=== PATIENT | male | born 1950 | race Caucasian/White ===

== ENCOUNTER 2021-07-07 17:00 | Inpatient (IN) | payer MEDICARE, OTHER ==
[2021-07-07] MEDS ORDERED: SODIUM CHLORIDE 0.9% 1,000 ML IV STA ×4 (17:34→19:13)
[2021-07-07] MEDS ORDERED: VANCOMYCIN IV PER PHARMACY 1 EACH MISC MISCELLANE PRN (17:38)
[2021-07-07] MEDS ORDERED: VANCOMYCIN 1,250 MG in SODIUM CHLORIDE 0.9% 250 ML IVPB STA (17:44)
[2021-07-07 17:56] LABS: Glucose,Whole Blood 109 mg/dL (75-99)
[2021-07-07] MEDS ORDERED: ROCURONIUM 10 MG/ML (5 ML VIAL) IV ONE (17:58)
[2021-07-07] MEDS ORDERED: ETOMIDATE 2 MG/ML 10 ML VIAL IVP STA (17:58)
[2021-07-07] MEDS ORDERED: VANCOMYCIN 1,250 MG in SODIUM CHLORIDE 0.9% 250 ML IVPB SCH (18:00)
[2021-07-07] MEDS ORDERED: CEFEPIME 2 GM in SODIUM CHLORIDE 0.9% 100 ML IVPB SCH (18:00)
[2021-07-07] MEDS ORDERED: CEFEPIME 2 GM in SODIUM CHLORIDE 0.9% 100 ML IVPB ONE (18:00)
[2021-07-07 18:21] LABS: Albumin 3.2 g/dL (3.5-5.0); Calcium 9.4 mg/dL (8.4-10.2); Magnesium 2.7 mg/dL (1.6-2.3); Total Bilirubin 1.1 mg/dL (0.2-1.3); Total Protein 5.8 g/dL (6.3-8.2)
[2021-07-07 18:24] LABS: HGB 18.4 gm/dL (13.0-17.5); MCH 30.8 pg (25.0-35.0); MCHC 32.9 g/dL (31.0-37.0); MCV 93.6 fL (80.0-100.0); Mean Platelet Volume 9.8; Platelet Count 237 k/uL (150-450); RBC 5.99 m/uL (4.30-5.90); RDW 13.2 % (11.5-15.5); WBC 16.5 k/uL (3.8-10.6)
[2021-07-07 18:26] LABS: HCT 56.1 % (39.0-53.0)
[2021-07-07 18:35] LABS: ABG Base Excess -2.7 mmol/L; ABG HCO3 23 mmol/L (21-25); ABG Oxygen Saturation 92.9 % (94-97); ABG PCO2 39 mmHg (35-45); ABG PH 7.37 (7.35-7.45); ABG PO2 67 mmHg (83-108); ABG TCO2 24 mmol/L (19-24); Allen Test Performed? Yes
[2021-07-07 18:37] LABS: Amorphous Sediment,Urine Rare /hpf; Appearance,Urine Cloudy (Clear); Bacteria,Urine Rare /hpf; Bilirubin,Urine Negative (Negative); Blood,Urine Negative (Negative); Color,Urine Yellow; Glucose,Urine (UA) Negative (Negative); Hyaline Casts,Urine 79 /lpf (0-2); Ketones,Urine Negative (Negative); Leukocyte Esterase,Urine Negative (Negative); Mucus,Urine Many /hpf; Nitrite,Urine Negative (Negative); Protein,Urine 1+ (Negative); RBC,Urine 26 /hpf (0-5); Specific Gravity,Urine 1.027 (1.001-1.035); Squamous Epithelial Cell,Urine 2 /hpf (0-4); WBC,Urine 17 /hpf (0-5)
--- NOTE | 2021-07-07 18:56 | XR ---
EXAMINATION TYPE: XR chest 1V portable DATE OF EXAM: 07/07/2021 CLINICAL HISTORY: cough, post intubation. TECHNIQUE: Portable semiupright view of the chest. COMPARISON: None FINDINGS: Endotracheal tube distal tip 2.0 cm from the gilberto. Enteric tube distal tip and side-port overlie the gastric antrum and gastric body respectively The cardiomediastinal silhouette is within normal limits for size. Pulmonary vasculature is normal. There are no patchy peripheral air space opa cities. No pleural effusion. No pneumothorax seen. No acute displaced osseous fracture. IMPRESSION: 1. Endotracheal tube distal tip 2.0 cm from the gilberto. 2. Enteric tube distal tip and side-port overlie the stomach. 3. Minimal patchy airspace opacities bilaterally versus atelectasis.
[2021-07-07 19:17] LABS: Band Neutrophils % 2 %; Lymphocytes # (M) 0.83 k/uL (1.0-4.8); Monocytes # (M) 0.66 k/uL (0-1.0); Neutrophils % (M) 89 %; Nucleated Red Blood Cells 0 /100 WBC (0-0); Total Cells Counted 100
[2021-07-07] MEDS ORDERED: NALOXONE 0.4 MG/ML 1 ML VIAL IV PRN (19:33)
[2021-07-07] MEDS: fentaNYL (PF). 1,000 MCG in SODIUM CHLORIDE 0.9% 80 ML IV SCH (20:12)
[2021-07-07] MEDS ORDERED: DEXTROSE 5% IN WATER 1,000 ML IV ONE (20:34)
--- NOTE | 2021-07-07 20:36 | CT ---
EXAMINATION TYPE: CT brain wo con DATE OF EXAM: 07/07/2021 HISTORY: AMS. CT DLP: 1179.8 mGycm. Automated Exposure Control for Dose Reduction was Utilized. TECHNIQUE: CT scan of the head is performed without contrast. COMPARISON: None FINDINGS: There is no acute intracranial hemorrhage, midline shift, or mass effect identified. Generalized volu me loss. Patchy white matter hypodensities likely sequela of chronic microvascular ischemic change. The ventricles, sulci, and cisterns are prominent concordant with generalized volume loss. No abnormal extra-axial fluid collection. Visualized sinuses and mastoid air cells are clear. No dep ressed calvarial fracture. There are nasal bone fractures bilaterally which are likely chronic due to lack of adjacent soft tissue swelling IMPRESSION: No acute intracranial hemorrhage, midline shift, or mass effect.
--- NOTE | 2021-07-07 20:48 | CT ---
EXAMINATION TYPE: CT chest angio for PE DATE OF EXAM: 07/07/2021 COMPARISON: None HISTORY: Altered mental status CT DLP: 360.8 mGycm Automated exposure control for dose reduction was used. CONTRAST: CT Chest for pulmonary embolism performed with with IV Contrast, patient injected with 80 mL of Isovu e 370. FINDINGS: LUNGS: Patient is intubated with endotracheal tube distal tip 1.9 cm from the gilberto. There is abrupt cut off of the left lower lobe bronchus with endobronchial hypodensity within the left lower lobe. T here is also some endobronchial hypodensity within the left upper lobe perihilar region. There is lef t lower lobe atelectasis. There are patchy airspace opacities of the left upper lobe and left lower l obe. Atelectasis of the right lower lobe and scattered mild airspace opacities. No pleural effusion o r pneumothorax. MEDIASTINUM: There is satisfactory enhancement of the pulmonary artery and its branches, there is no CT evidence for pulmonary embolism. There are no greater than 1 cm hilar or mediastinal lymph nodes. Somewhat prominent bihilar lymph nodes. No pericardial effusion is seen. Cardiac size normal. Thor acic aorta normal in caliber. OTHER: Heterogenous nodular thyroid. Enteric tube distal tip in the proximal duodenum. IMPRESSION: 1. No pulmonary embolism. 2. There is abrupt cut off of the left lower lobe bronchus with endobronchial dilatation and hypoden sity which may represent mucus plugging. There is also endobronchial hypodensity of the left upper lo be perihilar region. Left lower lobe atelectasis. Patchy multilobar airspace opacities, predominantly of the left upper and left lower lobes. 3. Endotracheal tube distal tip 1.9 cm from the gilberto. 4. Enteric tube distal tip in the proximal duodenum. 5. Heterogenous nodular thyroid. Recommend nonemergent outpatient dedicated thyroid ultrasound for f urther characterization.
[2021-07-07] MEDS ORDERED: ASPIRIN 300 MG SUPP RECTAL STA (20:52)
[2021-07-07] MEDS ORDERED: ENOXAPARIN 30 MG/0.3 ML SYRINGE SQ SCH (21:00)
[2021-07-07 21:33] LABS: INR 0.9 (<1.2); Prothrombin Time 10.2 sec (9.0-12.0)
[2021-07-07] MEDS: PANTOPRAZOLE 40 MG/10 ML VIAL IVP SCH (22:08)
--- NOTE | 2021-07-07 23:07 | ED ---
General Adult HPI - General Chief complaint: Shortness of Breath Stated complaint: Possible Aspiration Time Seen by Provider: 07/07/21 17:14 Source: EMS Mode of arrival: EMS Limitations: physical limitation - History of Present Illness Initial comments: I evaluated the patient when he was placed in a room. Patient is a 70-year-old male with past medical history remarkable for lewy body dementia with baseline mental status alert but not oriented and mute. Patient also has a history of hypertension. He presents emergency Department from his nursing facility over concern for difficulty in breathing. They noticed this over the last 1-1/2-2 days. They suspect that he may be aspirated. They noticed that he was retaining urine yesterday and today he was having difficulty breathing that was worsening. They brought him to the emergency department for further evaluation. Patient is currently mute and relatively unresponsive, he is in respiratory distress saturating low on nonrebreather in the low 80%'s. He is unable to provide any form of history. Patient is accident for COVID-19 per nursing and EMS. I spoke with the nursing facility over the phone who corroborated the story. I also spoke with the patient's guardian who states he is full code and corroborated the story. - Related Data Home Medications Medication Instructions Recorded Confirmed Atorvastatin [Lipitor] 20 mg PO HS 07/07/21 07/07/21 Losartan [Cozaar] 25 mg PO DAILY 07/07/21 07/07/21 Magnesium Hydroxide [Milk of 2,400 mg PO DAILY PRN 07/07/21 07/07/21 Magnesia] Melatonin 5 mg PO HS 07/07/21 07/07/21 Metoprolol Tartrate [Lopressor] 25 mg PO BID 07/07/21 07/07/21 Tamsulosin HCl [Flomax] 0.4 mg PO DAILY 07/07/21 07/07/21 amLODIPine [Norvasc] 2.5 mg PO DAILY 07/07/21 07/07/21 bisacodyL [Dulcolax] 10 mg RECTAL DAILY PRN 07/07/21 07/07/21 clonazePAM [KlonoPIN] 1 mg PO HS 07/07/21 07/07/21 Allergies Allergy/AdvReac Type Severity Reaction Status Date / Time cortisone Allergy Unknown Verified 07/07/21 17:45 lisinopril Allergy Unknown Verified 07/07/21 17:45 Sulfa (Sulfonamide Allergy Unknown Verified 07/07/21 17:45 Antibiotics) Review of Systems ROS Statement: Those systems with pertinent positive or pertinent negative responses have been documented in the HPI. Unable to provide secondary to mental status. ROS Other: All systems not noted in ROS Statement are negative. Past Medical History Past Medical History: Unable to Obtain History of Any Multi-Drug Resistant Organisms: Unobtainable Past Surgical History: Unable to Obtain Past Psychological History: Unable to Obtain Smoking Status: Unknown if ever smoked Past Alcohol Use History: Unable to Obtain Past Drug Use History: Unable to Obtain General Exam - General Exam Comments Initial Comments: General: In obvious respiratory distress, tachypnea, using accessory muscles for breathing. HEAD: Normal with no signs of head trauma. EYES: PERRLA, EOMI, conjunctiva normal, no discharge. Pupils are 3 mm bilaterally. ENT: Hearing grossly intact, normal oropharynx. RESPIRATORY: Coarse breath sounds bilaterally. Tachypnea. Increased work of breathing. C/V: Tachycardic with regular rhythm. S1 and S2 auscultated. No peripheral edema. Peripheral pulses are 2+ and intact throughout. ABD: Abd is soft, nontender, nondistended EXT: Normal range of motion, no obvious deformity SKIN: Old healing laceration over the forehead. NEURO: Not alert or oriented. GCS is at best 7. Limitations: physical limitation Course Vital Signs 07/07/21 07/07/21 07/07/21 17:03 17:11 17:40 Temperature 97.4 F L Pulse Rate 125 H 120 H Respiratory 34 H 32 H 36 H Rate Blood Pressure 102/60 108/64 O2 Sat by Pulse 84 L 85 L Oximetry 07/07/21 07/07/21 07/07/21 17:50 18:05 18:15 Temperature Pulse Rate 120 H 115 H 114 H Respiratory 30 H 24 24 Rate Blood Pressure 110/67 144/78 153/77 O2 Sat by Pulse 85 L 96 98 Oximetry 07/07/21 07/07/21 07/07/21 19:20 19:40 19:53 Temperature Pulse Rate 112 H 110 H 110 H Respiratory 24 24 24 Rate Blood Pressure 153/78 153/72 139/76 O2 Sat by Pulse 95 96 95 Oximetry 07/07/21 07/07/21 20:23 21:00 Temperature Pulse Rate 105 H 110 H Respiratory 18 18 Rate Blood Pressure 137/83 112/56 O2 Sat by Pulse 97 96 Oximetry Procedures - ABG Interpretation Ph: 7.368 PCO2: 39 PO2: 67 Bicarbonate: 22.6 Interpretation: abnormal, other (hypoxia) Additional Comments: 100% saturations on 5+ PEEP. - Intubation Sedative: Etomidate Paralytic: Rocuronium Laryngoscope: other (Glidescope) Size: 4 ET Tube Size: 7.5 Tube Secured Depth (cm): 25 Tube Secured Location: lips Tube Placement Confirmation: visualized tube passing through cords, equal breath sounds bilaterally, confirmation by capnometry Patient Tolerated Procedure: well Intubation Complications: none Medical Decision Making - Medical Decision Making Based on the patient's presentation and physical exam, I'm concerned for acute hypoxic respiratory failure with impending respiratory arrest secondary to his increased work of breathing and current hypoxia. He otherwise is hemodynamicall y stable except for tachycardia. Cannot rule out cardiac etiology versus infectious versus possible pulmonary embolism. Well's score for PE is high/moderate in we will obtain a CT PE to rule out pulmonary embolus and. Problem laboratory studies will also be obtained including lactic acid, blood c ultures, basic labs, troponin, d-dimer. Chest x-ray will also be obtained. We'll also obtain a head CT. Patient meets sepsis criteria at 1735. He'll be bolus 2 L of fluid. He'll be started on empiric vancomycin and cefepime. Patient requires intubation. Please see the separate note for intubation. He'll be connected to continuous voip network technician and while he is here in the department. There was successful intubation. Patient's chest x-ray shows no acute cardio primary process. Patient is intubated with adequate placement of the ET tube as well as OG tube. Head CT shows no acute intracranial process. Chest CTA was obtained prior to laboratory studies returning, which revealed no PE. There may be mucous plugging. There is also patchy multilobar airspace opacities mostly in the left upper and lower lobes. This is concerning for pneumonia. Laboratory studies were remarkable for a leukocytosis of 16.5. D-dimer is elevated to 2.82. Patient is hypernatremic 151 and hyperchloremic of 119. Patient has an AK I with a creatinine of 1.84 and they went of 63. Lactic acid is mildly elevated to 2.5. Troponin is elevated to 0.084 an EKG shows no signs of acute ischemia, and this is likely secondary to a NSTEMI. Urinalysis is remarkable for possible UTI with 26 RBCs, 17 WBCs. Covid, flu, RSV are negative. On reevaluation, patient's oxygen saturation is improved following intubation. ABG on current vent settings showed hypoxia with pO2 of 67 but adequate ventilation. PH is 7.36. Patient remains hemodynamically stable. Repeat lactate is 0.8. I completed the sepsis perfusion exam. I spoke with the patient's guardian, Vidya and updated her on the patient and explained he will be admitted to the hospital. She was in agreement with this plan. I spoke with the ICU attending, Dr. Vela who accepted the patient to the ICU. I spoke with the admitting team, SUAD Demarco of [facility] who accepted the patient. I suspect with Dr. Flor regarding the elevated troponin and was in agreement with trending the values and holding heparin. He will be given aspirin. Patient was therefore admitted in serious condition to the ICU. - Lab Data Result diagrams: 07/07/21 17:57 07/07/21 17:57 Lab Results 07/07/21 07/07/21 07/07/21 Range/Units 17:54 17:57 17:57 WBC 16.5 H (3.8-10.6) k/uL RBC 5.99 H (4.30-5.90) m/uL Hgb 18.4 H (13.0-17.5) gm/dL Hct 56.1 H (39.0-53.0) % MCV 93.6 (80.0-100.0) fL MCH 30.8 (25.0-35.0) pg MCHC 32.9 (31.0-37.0) g/dL RDW 13.2 (11.5-15.5) % Plt Count 237 (150-450) k/uL MPV 9.8 Neutrophils % Not Reportable Neutrophils % (Manual) 89 % Band Neuts % (Manual) 2 % Lymphocytes % Not Reportable Lymphocytes % (Manual) 5 % Monocytes % Not Reportable Monocytes % (Manual) 4 % Eosinophils % Not Reportable Basophils % Not Reportable Neutrophils # Not Reportable Neutrophils # (Manual) 15.00 H (1.3-7.7) k/uL Lymphocytes # Not Reportable Lymphocytes # (Manual) 0.83 L (1.0-4.8) k/uL Monocytes # Not Reportable Monocytes # (Manual) 0.66 (0-1.0) k/uL Eosinophils # Not Reportable Basophils # Not Reportable Nucleated RBCs 0 (0-0) /100 WBC Manual Slide Review Performed RBC Morphology Normal Sample Site ABG pH (7.35-7.45) ABG pCO2 (35-45) mmHg ABG pO2 (83-108) mmHg ABG HCO3 (21-25) mmol/L ABG Total CO2 (19-24) mmol/L ABG O2 Saturation (94-97) % ABG Base Excess mmol/L Blade Test FiO2 % Sodium (137-145) mmol/L Potassium (3.5-5.1) mmol/L Chloride (98-107) mmol/L Carbon Dioxide (22-30) mmol/L Anion Gap mmol/L BUN (9-20) mg/dL Creatinine (0.66-1.25) mg/dL Est GFR (CKD-EPI)AfAm (>60 ml/min/1.73 sqM) Est GFR (CKD-EPI)NonAf (>60 ml/min/1.73 sqM) Glucose (74-99) mg/dL POC Glucose (mg/dL) 109 H (75-99) mg/dL POC Glu Environmental Scientist ID Maureen Chapman Lactic Ac Sepsis Rflx Plasma Lactic Acid Jasiel (0.7-2.0) mmol/L Calcium (8.4-10.2) mg/dL Magnesium (1.6-2.3) mg/dL Total Bilirubin (0.2-1.3) mg/dL AST (17-59) U/L ALT (4-49) U/L Alkaline Phosphatase (38-126) U/L Troponin I (0.000-0.034) ng/mL NT-Pro-B Natriuret Pep pg/mL Total Protein (6.3-8.2) g/dL Albumin (3.5-5.0) g/dL Urine Color Yellow Urine Appearance Cloudy (Clear) Urine pH 5.0 (5.0-8.0) Ur Specific [place] 1.027 (1.001-1.035) Urine Protein 1+ H (Negative) Urine Glucose (UA) Negative (Negative) Urine Ketones Negative (Negative) Urine Blood Negative (Negative) Urine Nitrite Negative (Negative) Urine Bilirubin Negative (Negative) Urine Urobilinogen 2.0 (<2.0) mg/dL Ur Leukocyte Esterase Negative (Negative) Urine RBC 26 H (0-5) /hpf Urine WBC 17 H (0-5) /hpf Ur Squamous Epith Cells 2 (0-4) /hpf Amorphous Sediment Rare H (None) /hpf Urine Bacteria Rare H (None) /hpf Hyaline Casts 79 H (0-2) /lpf Urine Mucus Many H (None) /hpf Influenza Type A (PCR) (Not Detectd) Influenza Type B (PCR) (Not Detectd) RSV (PCR) (Not Detectd) SARS-CoV-2 (PCR) (Not Detectd) 07/07/21 07/07/21 07/07/21 Range/Units 17:57 17:57 17:57 WBC (3.8-10.6) k/uL RBC (4.30-5.90) m/uL Hgb (13.0-17.5) gm/dL Hct (39.0-53.0) % MCV (80.0-100.0) fL MCH (25.0-35.0) pg MCHC (31.0-37.0) g/dL RDW (11.5-15.5) % Plt Count (150-450) k/uL MPV Neutrophils % Neutrophils % (Manual) % Band Neuts % (Manual) % Lymphocytes % Lymphocytes % (Manual) % Monocytes % Monocytes % (Manual) % Eosinophils % Basophils % Neutrophils # Neutrophils # (Manual) (1.3-7.7) k/uL Lymphocytes # Lymphocytes # (Manual) (1.0-4.8) k/uL Monocytes # Monocytes # (Manual) (0-1.0) k/uL Eosinophils # Basophils # Nucleated RBCs (0-0) /100 WBC Manual Slide Review RBC Morphology Sample Site ABG pH (7.35-7.45) ABG pCO2 (35-45) mmHg ABG pO2 (83-108) mmHg ABG HCO3 (21-25) mmol/L ABG Total CO2 (19-24) mmol/L ABG O2 Saturation (94-97) % ABG Base Excess mmol/L Blade Test FiO2 % Sodium 151 H (137-145) mmol/L Potassium 4.0 (3.5-5.1) mmol/L Chloride 119 H (98-107) mmol/L Carbon Dioxide 24 (22-30) mmol/L Anion Gap 8 mmol/L BUN 63 H (9-20) mg/dL Creatinine 1.84 H (0.66-1.25) mg/dL Est GFR (CKD-EPI)AfAm 43 (>60 ml/min/1.73 sqM) Est GFR (CKD-EPI)NonAf 37 (>60 ml/min/1.73 sqM) Glucose 121 H (74-99) mg/dL POC Glucose (mg/dL) (75-99) mg/dL POC Glu Environmental Scientist ID Lactic Ac Sepsis Rflx Plasma Lactic Acid Jasiel 2.5 H* (0.7-2.0) mmol/L Calcium 9.4 (8.4-10.2) mg/dL Magnesium 2.7 H (1.6-2.3) mg/dL Total Bilirubin 1.1 (0.2-1.3) mg/dL AST 43 (17-59) U/L ALT 39 (4-49) U/L Alkaline Phosphatase 60 (38-126) U/L Troponin I 0.084 H* (0.000-0.034) ng/mL NT-Pro-B Natriuret Pep pg/mL Total Protein 5.8 L (6.3-8.2) g/dL Albumin 3.2 L (3.5-5.0) g/dL Urine Color Urine Appearance (Clear) Urine pH (5.0-8.0) Ur Specific [place] (1.001-1.035) Urine Protein (Negative) Urine Glucose (UA) (Negative) Urine Ketones (Negative) Urine Blood (Negative) Urine Nitrite (Negative) Urine Bilirubin (Negative) Urine Urobilinogen (<2.0) mg/dL Ur Leukocyte Esterase (Negative) Urine RBC (0-5) /hpf Urine WBC (0-5) /hpf Ur Squamous Epith Cells (0-4) /hpf Amorphous Sediment (None) /hpf Urine Bacteria (None) /hpf Hyaline Casts (0-2) /lpf Urine Mucus (None) /hpf Influenza Type A (PCR) (Not Detectd) Influenza Type B (PCR) (Not Detectd) RSV (PCR) (Not Detectd) SARS-CoV-2 (PCR) (Not Detectd) 07/07/21 07/07/21 07/07/21 Range/Units 17:57 17:57 18:26 WBC (3.8-10.6) k/uL RBC (4.30-5.90) m/uL Hgb (13.0-17.5) gm/dL Hct (39.0-53.0) % MCV (80.0-100.0) fL MCH (25.0-35.0) pg MCHC (31.0-37.0) g/dL RDW (11.5-15.5) % Plt Count (150-450) k/uL MPV Neutrophils % Neutrophils % (Manual) % Band Neuts % (Manual) % Lymphocytes % Lymphocytes % (Manual) % Monocytes % Monocytes % (Manual) % Eosinophils % Basophils % Neutrophils # Neutrophils # (Manual) (1.3-7.7) k/uL Lymphocytes # Lymphocytes # (Manual) (1.0-4.8) k/uL Monocytes # Monocytes # (Manual) (0-1.0) k/uL Eosinophils # Basophils # Nucleated RBCs (0-0) /100 WBC Manual Slide Review RBC Morphology Sample Site L RAD ABG pH 7.37 (7.35-7.45) ABG pCO2 39 (35-45) mmHg ABG pO2 67 L (83-108) mmHg ABG HCO3 23 (21-25) mmol/L ABG Total CO2 24 (19-24) mmol/L ABG O2 Saturation 92.9 L (94-97) % ABG Base Excess -2.7 mmol/L Blade Test Yes FiO2 100 % Sodium (137-145) mmol/L Potassium (3.5-5.1) mmol/L Chloride (98-107) mmol/L Carbon Dioxide (22-30) mmol/L Anion Gap mmol/L BUN (9-20) mg/dL Creatinine (0.66-1.25) mg/dL Est GFR (CKD-EPI)AfAm (>60 ml/min/1.73 sqM) Est GFR (CKD-EPI)NonAf (>60 ml/min/1.73 sqM) Glucose (74-99) mg/dL POC Glucose (mg/dL) (75-99) mg/dL POC Glu Environmental Scientist ID Lactic Ac Sepsis Rflx Plasma Lactic Acid Jasiel (0.7-2.0) mmol/L Calcium (8.4-10.2) mg/dL Magnesium (1.6-2.3) mg/dL Total Bilirubin (0.2-1.3) mg/dL AST (17-59) U/L ALT (4-49) U/L Alkaline Phosphatase (38-126) U/L Troponin I (0.000-0.034) ng/mL NT-Pro-B Natriuret Pep 269 pg/mL Total Protein (6.3-8.2) g/dL Albumin (3.5-5.0) g/dL Urine Color Urine Appearance (Clear) Urine pH (5.0-8.0) Ur Specific [place] (1.001-1.035) Urine Protein (Negative) Urine Glucose (UA) (Negative) Urine Ketones (Negative) Urine Blood (Negative) Urine Nitrite (Negative) Urine Bilirubin (Negative) Urine Urobilinogen (<2.0) mg/dL Ur Leukocyte Esterase (Negative) Urine RBC (0-5) /hpf Urine WBC (0-5) /hpf Ur Squamous Epith Cells (0-4) /hpf Amorphous Sediment (None) /hpf Urine Bacteria (None) /hpf Hyaline Casts (0-2) /lpf Urine Mucus (None) /hpf Influenza Type A (PCR) Not Detected (Not Detectd) Influenza Type B (PCR) Not Detected (Not Detectd) RSV (PCR) Not Detected (Not Detectd) SARS-CoV-2 (PCR) Not Detected (Not Detectd) 07/07/21 Range/Units 18:30 WBC (3.8-10.6) k/uL RBC (4.30-5.90) m/uL Hgb (13.0-17.5) gm/dL Hct (39.0-53.0) % MCV (80.0-100.0) fL MCH (25.0-35.0) pg MCHC (31.0-37.0) g/dL RDW (11.5-15.5) % Plt Count (150-450) k/uL MPV Neutrophils % Neutrophils % (Manual) % Band Neuts % (Manual) % Lymphocytes % Lymphocytes % (Manual) % Monocytes % Monocytes % (Manual) % Eosinophils % Basophils % Neutrophils # Neutrophils # (Manual) (1.3-7.7) k/uL Lymphocytes # Lymphocytes # (Manual) (1.0-4.8) k/uL Monocytes # Monocytes # (Manual) (0-1.0) k/uL Eosinophils # Basophils # Nucleated RBCs (0-0) /100 WBC Manual Slide Review RBC Morphology Sample Site ABG pH (7.35-7.45) ABG pCO2 (35-45) mmHg ABG pO2 (83-108) mmHg ABG HCO3 (21-25) mmol/L ABG Total CO2 (19-24) mmol/L ABG O2 Saturation (94-97) % ABG Base Excess mmol/L Blade Test FiO2 % Sodium (137-145) mmol/L Potassium (3.5-5.1) mmol/L Chloride (98-107) mmol/L Carbon Dioxide (22-30) mmol/L Anion Gap mmol/L BUN (9-20) mg/dL Creatinine (0.66-1.25) mg/dL Est GFR (CKD-EPI)AfAm (>60 ml/min/1.73 sqM) Est GFR (CKD-EPI)NonAf (>60 ml/min/1.73 sqM) Glucose (74-99) mg/dL POC Glucose (mg/dL) (75-99) mg/dL POC Glu Environmental Scientist ID Lactic Ac Sepsis Rflx Y Plasma Lactic Acid Jasiel (0.7-2.0) mmol/L Calcium (8.4-10.2) mg/dL Magnesium (1.6-2.3) mg/dL Total Bilirubin (0.2-1.3) mg/dL AST (17-59) U/L ALT (4-49) U/L Alkaline Phosphatase (38-126) U/L Troponin I (0.000-0.034) ng/mL NT-Pro-B Natriuret Pep pg/mL Total Protein (6.3-8.2) g/dL Albumin (3.5-5.0) g/dL Urine Color Urine Appearance (Clear) Urine pH (5.0-8.0) Ur Specific [place] (1.001-1.035) Urine Protein (Negative) Urine Glucose (UA) (Negative) Urine Ketones (Negative) Urine Blood (Negative) Urine Nitrite (Negative) Urine Bilirubin (Negative) Urine Urobilinogen (<2.0) mg/dL Ur Leukocyte Esterase (Negative) Urine RBC (0-5) /hpf Urine WBC (0-5) /hpf Ur Squamous Epith Cells (0-4) /hpf Amorphous Sediment (None) /hpf Urine Bacteria (None) /hpf Hyaline Casts (0-2) /lpf Urine Mucus (None) /hpf Influenza Type A (PCR) (Not Detectd) Influenza Type B (PCR) (Not Detectd) RSV (PCR) (Not Detectd) SARS-CoV-2 (PCR) (Not Detectd) - EKG Data -: EKG Interpreted by Me EKG Comments: 12-lead Electrocardiogram Interpretation Note EKG was reviewed and interpreted by myself. 12-lead ECG performed at 1709 is interpreted by me as revealing sinus tachycardia at a rate of 125 beats per minute. Corrigan is normal. VA interval is 112 ms, QRS duration 76 ms, QTc is 499 ms.. There are mild ST segment depressions in V3, V4, and possibly V5. Minimal. No reciprocal changes.. R wave progression across the precordium was satisfactory. By my interpretation, this EKG is nondiagnostic for acute ischemia.. Critical Care Time Critical Care Time: Yes Total Critical Care Time: 35 Critical Care Time: Upon my evaluation, this patient had a high probability of imminent or life- threatening deterioration due to hypoxic respiratory failure, sepsis, which required my direct attention, intervention, and personal management. I have personally provided 35 minutes of critical care time exclusive of time spent on separately billable procedures. Time includes review of laboratory data, radiology results, discussion with consultants, and monitoring for potential decompensation. Interventions were performed as documented in my note. Disposition Clinical Impression: Sepsis with acute hypoxic respiratory failure, Sinus tachycardia, Airway intubation performed without difficulty, Hypernatremia, NSTEMI (non-ST elevated myocardial infarction), JOEY (acute kidney injury), Elevated d-dimer, UTI (urinary tract infection), Elevated lactic acid level, Lewy body dementia Disposition: ADMITTED IP TO THIS HOSP Condition: Critical Is patient prescribed a controlled substance at d/c from ED?: No
--- NOTE | 2021-07-07 23:22 | ED ---
Medical Decision Making - Lab Data Result diagrams: 07/07/21 17:57 07/07/21 17:57 Lab Results 07/07/21 07/07/21 07/07/21 Range/Units 17:54 17:57 17:57 WBC 16.5 H (3.8-10.6) k/uL RBC 5.99 H (4.30-5.90) m/uL Hgb 18.4 H (13.0-17.5) gm/dL Hct 56.1 H (39.0-53.0) % MCV 93.6 (80.0-100.0) fL MCH 30.8 (25.0-35.0) pg MCHC 32.9 (31.0-37.0) g/dL RDW 13.2 (11.5-15.5) % Plt Count 237 (150-450) k/uL MPV 9.8 Neutrophils % Not Reportable Neutrophils % (Manual) 89 % Band Neuts % (Manual) 2 % Lymphocytes % Not Reportable Lymphocytes % (Manual) 5 % Monocytes % Not Reportable Monocytes % (Manual) 4 % Eosinophils % Not Reportable Basophils % Not Reportable Neutrophils # Not Reportable Neutrophils # (Manual) 15.00 H (1.3-7.7) k/uL Lymphocytes # Not Reportable Lymphocytes # (Manual) 0.83 L (1.0-4.8) k/uL Monocytes # Not Reportable Monocytes # (Manual) 0.66 (0-1.0) k/uL Eosinophils # Not Reportable Basophils # Not Reportable Nucleated RBCs 0 (0-0) /100 WBC Manual Slide Review Performed RBC Morphology Normal Sample Site ABG pH (7.35-7.45) ABG pCO2 (35-45) mmHg ABG pO2 (83-108) mmHg ABG HCO3 (21-25) mmol/L ABG Total CO2 (19-24) mmol/L ABG O2 Saturation (94-97) % ABG Base Excess mmol/L Blade Test FiO2 % Sodium (137-145) mmol/L Potassium (3.5-5.1) mmol/L Chloride (98-107) mmol/L Carbon Dioxide (22-30) mmol/L Anion Gap mmol/L BUN (9-20) mg/dL Creatinine (0.66-1.25) mg/dL Est GFR (CKD-EPI)AfAm (>60 ml/min/1.73 sqM) Est GFR (CKD-EPI)NonAf (>60 ml/min/1.73 sqM) Glucose (74-99) mg/dL POC Glucose (mg/dL) 109 H (75-99) mg/dL POC Glu Sofa Inspector ID Maureen Chapman Ac Sepsis Rflx Plasma Lactic Acid Jasiel (0.7-2.0) mmol/L Calcium (8.4-10.2) mg/dL Magnesium (1.6-2.3) mg/dL Total Bilirubin (0.2-1.3) mg/dL AST (17-59) U/L ALT (4-49) U/L Alkaline Phosphatase (38-126) U/L Troponin I (0.000-0.034) ng/mL NT-Pro-B Natriuret Pep pg/mL Total Protein (6.3-8.2) g/dL Albumin (3.5-5.0) g/dL Urine Color Yellow Urine Appearance Cloudy (Clear) Urine pH 5.0 (5.0-8.0) Ur Specific [place] 1.027 (1.001-1.035) Urine Protein 1+ H (Negative) Urine Glucose (UA) Negative (Negative) Urine Ketones Negative (Negative) Urine Blood Negative (Negative) Urine Nitrite Negative (Negative) Urine Bilirubin Negative (Negative) Urine Urobilinogen 2.0 (<2.0) mg/dL Ur Leukocyte Esterase Negative (Negative) Urine RBC 26 H (0-5) /hpf Urine WBC 17 H (0-5) /hpf Ur Squamous Epith Cells 2 (0-4) /hpf Amorphous Sediment Rare H (None) /hpf Urine Bacteria Rare H (None) /hpf Hyaline Casts 79 H (0-2) /lpf Urine Mucus Many H (None) /hpf Influenza Type A (PCR) (Not Detectd) Influenza Type B (PCR) (Not Detectd) RSV (PCR) (Not Detectd) SARS-CoV-2 (PCR) (Not Detectd) 07/07/21 07/07/21 07/07/21 Range/Units 17:57 17:57 17:57 WBC (3.8-10.6) k/uL RBC (4.30-5.90) m/uL Hgb (13.0-17.5) gm/dL Hct (39.0-53.0) % MCV (80.0-100.0) fL MCH (25.0-35.0) pg MCHC (31.0-37.0) g/dL RDW (11.5-15.5) % Plt Count (150-450) k/uL MPV Neutrophils % Neutrophils % (Manual) % Band Neuts % (Manual) % Lymphocytes % Lymphocytes % (Manual) % Monocytes % Monocytes % (Manual) % Eosinophils % Basophils % Neutrophils # Neutrophils # (Manual) (1.3-7.7) k/uL Lymphocytes # Lymphocytes # (Manual) (1.0-4.8) k/uL Monocytes # Monocytes # (Manual) (0-1.0) k/uL Eosinophils # Basophils # Nucleated RBCs (0-0) /100 WBC Manual Slide Review RBC Morphology Sample Site ABG pH (7.35-7.45) ABG pCO2 (35-45) mmHg ABG pO2 (83-108) mmHg ABG HCO3 (21-25) mmol/L ABG Total CO2 (19-24) mmol/L ABG O2 Saturation (94-97) % ABG Base Excess mmol/L Blade Test FiO2 % Sodium 151 H (137-145) mmol/L Potassium 4.0 (3.5-5.1) mmol/L Chloride 119 H (98-107) mmol/L Carbon Dioxide 24 (22-30) mmol/L Anion Gap 8 mmol/L BUN 63 H (9-20) mg/dL Creatinine 1.84 H (0.66-1.25) mg/dL Est GFR (CKD-EPI)AfAm 43 (>60 ml/min/1.73 sqM) Est GFR (CKD-EPI)NonAf 37 (>60 ml/min/1.73 sqM) Glucose 121 H (74-99) mg/dL POC Glucose (mg/dL) (75-99) mg/dL POC Glu Sofa Inspector ID Lactic Ac Sepsis Rflx Plasma Lactic Acid Jasiel 2.5 H* (0.7-2.0) mmol/L Calcium 9.4 (8.4-10.2) mg/dL Magnesium 2.7 H (1.6-2.3) mg/dL Total Bilirubin 1.1 (0.2-1.3) mg/dL AST 43 (17-59) U/L ALT 39 (4-49) U/L Alkaline Phosphatase 60 (38-126) U/L Troponin I 0.084 H* (0.000-0.034) ng/mL NT-Pro-B Natriuret Pep pg/mL Total Protein 5.8 L (6.3-8.2) g/dL Albumin 3.2 L (3.5-5.0) g/dL Urine Color Urine Appearance (Clear) Urine pH (5.0-8.0) Ur Specific [place] (1.001-1.035) Urine Protein (Negative) Urine Glucose (UA) (Negative) Urine Ketones (Negative) Urine Blood (Negative) Urine Nitrite (Negative) Urine Bilirubin (Negative) Urine Urobilinogen (<2.0) mg/dL Ur Leukocyte Esterase (Negative) Urine RBC (0-5) /hpf Urine WBC (0-5) /hpf Ur Squamous Epith Cells (0-4) /hpf Amorphous Sediment (None) /hpf Urine Bacteria (None) /hpf Hyaline Casts (0-2) /lpf Urine Mucus (None) /hpf Influenza Type A (PCR) (Not Detectd) Influenza Type B (PCR) (Not Detectd) RSV (PCR) (Not Detectd) SARS-CoV-2 (PCR) (Not Detectd) 07/07/21 07/07/21 07/07/21 Range/Units 17:57 17:57 18:26 WBC (3.8-10.6) k/uL RBC (4.30-5.90) m/uL Hgb (13.0-17.5) gm/dL Hct (39.0-53.0) % MCV (80.0-100.0) fL MCH (25.0-35.0) pg MCHC (31.0-37.0) g/dL RDW (11.5-15.5) % Plt Count (150-450) k/uL MPV Neutrophils % Neutrophils % (Manual) % Band Neuts % (Manual) % Lymphocytes % Lymphocytes % (Manual) % Monocytes % Monocytes % (Manual) % Eosinophils % Basophils % Neutrophils # Neutrophils # (Manual) (1.3-7.7) k/uL Lymphocytes # Lymphocytes # (Manual) (1.0-4.8) k/uL Monocytes # Monocytes # (Manual) (0-1.0) k/uL Eosinophils # Basophils # Nucleated RBCs (0-0) /100 WBC Manual Slide Review RBC Morphology Sample Site L RAD ABG pH 7.37 (7.35-7.45) ABG pCO2 39 (35-45) mmHg ABG pO2 67 L (83-108) mmHg ABG HCO3 23 (21-25) mmol/L ABG Total CO2 24 (19-24) mmol/L ABG O2 Saturation 92.9 L (94-97) % ABG Base Excess -2.7 mmol/L Blade Test Yes FiO2 100 % Sodium (137-145) mmol/L Potassium (3.5-5.1) mmol/L Chloride (98-107) mmol/L Carbon Dioxide (22-30) mmol/L Anion Gap mmol/L BUN (9-20) mg/dL Creatinine (0.66-1.25) mg/dL Est GFR (CKD-EPI)AfAm (>60 ml/min/1.73 sqM) Est GFR (CKD-EPI)NonAf (>60 ml/min/1.73 sqM) Glucose (74-99) mg/dL POC Glucose (mg/dL) (75-99) mg/dL POC Glu Sofa Inspector ID Lactic Ac Sepsis Rflx Plasma Lactic Acid Jasiel (0.7-2.0) mmol/L Calcium (8.4-10.2) mg/dL Magnesium (1.6-2.3) mg/dL Total Bilirubin (0.2-1.3) mg/dL AST (17-59) U/L ALT (4-49) U/L Alkaline Phosphatase (38-126) U/L Troponin I (0.000-0.034) ng/mL NT-Pro-B Natriuret Pep 269 pg/mL Total Protein (6.3-8.2) g/dL Albumin (3.5-5.0) g/dL Urine Color Urine Appearance (Clear) Urine pH (5.0-8.0) Ur Specific [place] (1.001-1.035) Urine Protein (Negative) Urine Glucose (UA) (Negative) Urine Ketones (Negative) Urine Blood (Negative) Urine Nitrite (Negative) Urine Bilirubin (Negative) Urine Urobilinogen (<2.0) mg/dL Ur Leukocyte Esterase (Negative) Urine RBC (0-5) /hpf Urine WBC (0-5) /hpf Ur Squamous Epith Cells (0-4) /hpf Amorphous Sediment (None) /hpf Urine Bacteria (None) /hpf Hyaline Casts (0-2) /lpf Urine Mucus (None) /hpf Influenza Type A (PCR) Not Detected (Not Detectd) Influenza Type B (PCR) Not Detected (Not Detectd) RSV (PCR) Not Detected (Not Detectd) SARS-CoV-2 (PCR) Not Detected (Not Detectd) 07/07/21 Range/Units 18:30 WBC (3.8-10.6) k/uL RBC (4.30-5.90) m/uL Hgb (13.0-17.5) gm/dL Hct (39.0-53.0) % MCV (80.0-100.0) fL MCH (25.0-35.0) pg MCHC (31.0-37.0) g/dL RDW (11.5-15.5) % Plt Count (150-450) k/uL MPV Neutrophils % Neutrophils % (Manual) % Band Neuts % (Manual) % Lymphocytes % Lymphocytes % (Manual) % Monocytes % Monocytes % (Manual) % Eosinophils % Basophils % Neutrophils # Neutrophils # (Manual) (1.3-7.7) k/uL Lymphocytes # Lymphocytes # (Manual) (1.0-4.8) k/uL Monocytes # Monocytes # (Manual) (0-1.0) k/uL Eosinophils # Basophils # Nucleated RBCs (0-0) /100 WBC Manual Slide Review RBC Morphology Sample Site ABG pH (7.35-7.45) ABG pCO2 (35-45) mmHg ABG pO2 (83-108) mmHg ABG HCO3 (21-25) mmol/L ABG Total CO2 (19-24) mmol/L ABG O2 Saturation (94-97) % ABG Base Excess mmol/L Blade Test FiO2 % Sodium (137-145) mmol/L Potassium (3.5-5.1) mmol/L Chloride (98-107) mmol/L Carbon Dioxide (22-30) mmol/L Anion Gap mmol/L BUN (9-20) mg/dL Creatinine (0.66-1.25) mg/dL Est GFR (CKD-EPI)AfAm (>60 ml/min/1.73 sqM) Est GFR (CKD-EPI)NonAf (>60 ml/min/1.73 sqM) Glucose (74-99) mg/dL POC Glucose (mg/dL) (75-99) mg/dL POC Glu Sofa Inspector ID Lactic Ac Sepsis Rflx Y Plasma Lactic Acid Jasiel (0.7-2.0) mmol/L Calcium (8.4-10.2) mg/dL Magnesium (1.6-2.3) mg/dL Total Bilirubin (0.2-1.3) mg/dL AST (17-59) U/L ALT (4-49) U/L Alkaline Phosphatase (38-126) U/L Troponin I (0.000-0.034) ng/mL NT-Pro-B Natriuret Pep pg/mL Total Protein (6.3-8.2) g/dL Albumin (3.5-5.0) g/dL Urine Color Urine Appearance (Clear) Urine pH (5.0-8.0) Ur Specific [place] (1.001-1.035) Urine Protein (Negative) Urine Glucose (UA) (Negative) Urine Ketones (Negative) Urine Blood (Negative) Urine Nitrite (Negative) Urine Bilirubin (Negative) Urine Urobilinogen (<2.0) mg/dL Ur Leukocyte Esterase (Negative) Urine RBC (0-5) /hpf Urine WBC (0-5) /hpf Ur Squamous Epith Cells (0-4) /hpf Amorphous Sediment (None) /hpf Urine Bacteria (None) /hpf Hyaline Casts (0-2) /lpf Urine Mucus (None) /hpf Influenza Type A (PCR) (Not Detectd) Influenza Type B (PCR) (Not Detectd) RSV (PCR) (Not Detectd) SARS-CoV-2 (PCR) (Not Detectd) Disposition Clinical Impression: Sepsis with acute hypoxic respiratory failure, Sinus tachycardia, Airway intubation performed without difficulty, Hypernatremia, NSTEMI (non-ST elevated myocardial infarction), JOEY (acute kidney injury), Elevated d-dimer, UTI (urinary tract infection), Elevated lactic acid level, Lewy body dementia Disposition: ADMITTED IP TO THIS HOSP Condition: Critical Procedures - Sepsis Sepsis Focused Exam #1 Time Sepsis Criteria Met: 17:35 Sepsis Focused Exam Date: 07/07/21 Sepsis Focused Exam Time: 19:00 Sepsis Focused Exam Complete: Yes Vital Signs & RN Notes Reviewed: Yes Capillary Refill: > 2 Seconds: Fingers, Toes Peripheral Pulses: Normal: Radial (R), Radial (L) Skin Color: Normal for Patient Respiratory Exam: other (coarse breath sounds) Cardiovascular Exam: tachycardia
[2021-07-07] MEDS ORDERED: propofoL 100 ML IV ONE (23:34)
[2021-07-07 23:39] LABS: Glucose,Whole Blood 140 mg/dL (75-99)
[2021-07-08] MEDS: fentaNYL (PF). 1,000 MCG in SODIUM CHLORIDE 0.9% 80 ML IV SCH (03:25)
[2021-07-08 05:25] LABS: Basophils # (A) 0.1 k/uL (0-0.2); Basophils % (A) 1 %; Eosinophils % (A) 0 %; HCT 46.2 % (39.0-53.0); Lymphocytes # (A) 1.4 k/uL (1.0-4.8); Lymphocytes % (A) 11 %; MCH 30.5 pg (25.0-35.0); MCHC 31.6 g/dL (31.0-37.0); MCV 96.5 fL (80.0-100.0); Mean Platelet Volume 9.7; Monocytes # (A) 0.4 k/uL (0-1.0); Monocytes % (A) 3 %; Neutrophils # (A) 10.9 k/uL (1.3-7.7); Neutrophils % (A) 84 %; Platelet Count 187 k/uL (150-450); RBC 4.79 m/uL (4.30-5.90); RDW 13.3 % (11.5-15.5); WBC 12.9 k/uL (3.8-10.6)
[2021-07-08 05:27] LABS: HGB 14.6 gm/dL (13.0-17.5)
[2021-07-08 05:40] LABS: Albumin 2.2 g/dL (3.5-5.0); Calcium 7.8 mg/dL (8.4-10.2); Magnesium 2.4 mg/dL (1.6-2.3); Potassium 3.6 mmol/L (3.5-5.1); Total Bilirubin 0.8 mg/dL (0.2-1.3); Total Protein 4.3 g/dL (6.3-8.2)
[2021-07-08] MEDS ORDERED: CEFEPIME 2 GM in SODIUM CHLORIDE 0.9% 100 ML IVPB SCH (06:00)
[2021-07-08] MEDS ORDERED: Potassium Replacement Protocol 1 EACH MISC MISCELLANE PRN (06:54)
[2021-07-08 07:02] LABS: Glucose,Whole Blood 110 mg/dL (75-99)
[2021-07-08] MEDS ORDERED: POTASSIUM BICARBONATE/CIT AC 20 MEQ TABLET.EFF NG-TUBE SCH (08:00)
[2021-07-08] MEDS: PANTOPRAZOLE 40 MG/10 ML VIAL IVP SCH (08:08)
[2021-07-08] MEDS ORDERED: HEPARIN SODIUM 1,000 UN/ML (10ML VL) IV ONE (08:39)
[2021-07-08] MEDS ORDERED: HEPARIN SODIUM 1,000 UN/ML (10ML VL) IV PRN (08:39)
--- NOTE | 2021-07-08 08:57 | XR ---
EXAMINATION TYPE: XR chest 1V DATE OF EXAM: 07/08/2021 COMPARISON: 07/07/2021 INDICATION: Intubated TECHNIQUE: Single frontal view of the chest is obtained. FINDINGS: The heart size is normal. The pulmonary vasculature is normal. Small left pleural effusion has developed. Endotracheal tube tip is above the gilberto. Nasogastric tub e transverses the thorax. IMPRESSION: 1. Small left pleural effusion developing. 2. Lines and catheters discussed above
[2021-07-08] MEDS: METOPROLOL TARTRATE 25 MG TAB PO SCH ×2 (09:06→22:13)
[2021-07-08] MEDS: HEPARIN SOD,PORK IN 0.45% NACL 25,000 UNIT in 0.45% NACL 1 250ML.BAG IV SCH (09:07)
[2021-07-08 09:13] LABS: ABG Base Excess -1.9 mmol/L; ABG HCO3 23 mmol/L (21-25); ABG Oxygen Saturation 98.3 % (94-97); ABG PCO2 36 mmHg (35-45); ABG PH 7.41 (7.35-7.45); ABG PO2 101 mmHg (83-108); ABG TCO2 24 mmol/L (19-24)
[2021-07-08 09:15] LABS: Allen Test Performed? YES
[2021-07-08] MEDS: VANCOMYCIN 1,500 MG in SODIUM CHLORIDE 0.9% 250 ML IVPB SCH ×2 (10:08→22:13)
--- NOTE | 2021-07-08 10:23 | ECHOF ---
Referral Reason:elevated trops MEASUREMENTS -------- HEIGHT: 175.3 cm WEIGHT: 74.8 kg BP: 90/62 RVIDd: 3.1 cm (< 3.3) IVSd: 1.1 cm (0.6 - 1.1) LVIDd: 3.2 cm (3.9 - 5.3) LVPWd: 1.0 cm (0.6 - 1.1) IVSs: 1.2 cm LVIDs: 2.4 cm LVPWs: 1.1 cm MV E Miko: 0.78 m/s MV DecT: 215 ms MV A Miko: 1.03 m/s MV E/A Ratio: 0.76 RAP: 5.00 mmHg RVSP: 14.97 mmHg FINDINGS -------- This was a technically difficult study with suboptimal views. Pt. on a vent. The left ventricular size is normal. Left ventricular wall thickness is normal. Overall left vent ricular systolic function is low-normal with, an EF between 50 - 55 %. The right ventricle is normal in size. The left atrium was not well visualized. The right atrium was not well visualized. 1.0 mg of Lumason was utilized for enhancement of images Interatrial and interventricular septum intact. The aortic valve was not well visualized. There is no evidence of aortic regurgitation. There is no evidence of aortic stenosis. The mitral valve was not well visualized. No mitral regurgitation. The tricuspid valve was not well visualized. Mild tricuspid regurgitation present. There is no ev idence of pulmonary hypertension. The right ventricular systolic pressure, as measured by Doppler, is 14.97mmHg. The pulmonic valve was not well visualized. The aortic root size is normal. The inferior vena cava is mildly dilated. There is no pericardial effusion. CONCLUSIONS -------- 1. The left ventricular size is normal. 2. Left ventricular wall thickness is normal. 3. Overall left ventricular systolic function is low-normal with, an EF between 50 - 55 %. 4. The inferior vena cava is mildly dilated. CASTING TECHNICIAN: Lashay Poe, [facility]
[2021-07-08] MEDS: CHLORHEXIDINE GLUCONATE 15 ML CUP MUCOUS MEM SCH ×2 (10:30→22:13)
--- NOTE | 2021-07-08 10:46 | P.HPIM ---
History of Present Illness This is a pleasant 70 years old male with past medical history of BPH, dysphagia, Lewy Body dementia, . Patient was sent from [facility] for shortness of breath and possible aspiration pneumonia. Pt is non verbal. Patient could not provide information so it was obtained from chart and staff Upon Arrival patient was tachypneic, tachycardic, hypoxic with saturation of 84% on room air. Patient had to be intubated. Currently he is saturating 96% on mechanical ventilation as patient was intubated in the emergency room. Patient has leukocytosis of 16.5 and 12.9. Hemoglobin 14.6 and platelet normal. INR 0.9 and d-dimer 2.8. ABG pH 7.3 with normal, pCO2 39 normal and pO2 67 low BMP showing hypernatremia 151, high creatinine 1.8 and high lactic acid 2.5. This came down to sodium 141, normal creatinine 1.0 and lactic acid down to normal at 1.6. Liver enzymes trending up with AST was 56 and ALT 106. Troponin elevated at 0.08 and 0.22. ProBNP 269 Urine analysis showed 1+ protein, 26 RBCs and WBCs 17. covid and influenza viruses are not detected Chest x-ray showing minimal patchy airspace opacity bilateral versus atelectasis. CTA of the chest, no pulmonary embolism. There is abrupt cutoff of the left lower lobe bronchus with endotracheal dilatation and hypodensity which may represent mucous plugging. There is also endobronchial hypodensity of the left upper lobe perihilar region. Left lower lobe atelectasis. Patchy multilobar airspace opacity, predominantly of the left upper and left lower lobes. Enteric tube distal tip in the proximal duodenum. Heterogeneous nodular thyroid with recommendation for thyroid ultrasound CT of the brain: No acute process. In the emergency room patient was started on cefepime and IV vancomycin cardiology and pulmonary team were consulted Review of Systems n/a patient is intubated Past Medical History Past Medical History: Unable to Obtain Additional Past Medical History / Comment(s): BPH, dysphagia, Lewy Body dementia, non-verbal Last Myocardial Infarction Date:: 2006 History of Any Multi-Drug Resistant Organisms: Unobtainable Past Surgical History: Unable to Obtain Past Anesthesia/Blood Transfusion Reactions: No Reported Reaction Past Psychological History: Unable to Obtain Smoking Status: Unknown if ever smoked Past Alcohol Use History: Unable to Obtain Past Drug Use History: Unable to Obtain Medications and Allergies Home Medications Medication Instructions Recorded Confirmed Type Atorvastatin [Lipitor] 20 mg PO HS 07/07/21 07/07/21 History Losartan [Cozaar] 25 mg PO DAILY 07/07/21 07/07/21 History Magnesium Hydroxide [Milk of 2,400 mg PO DAILY PRN 07/07/21 07/07/21 History Magnesia] Melatonin 5 mg PO HS 07/07/21 07/07/21 History Metoprolol Tartrate [Lopressor] 25 mg PO BID 07/07/21 07/07/21 History Tamsulosin HCl [Flomax] 0.4 mg PO DAILY 07/07/21 07/07/21 History amLODIPine [Norvasc] 2.5 mg PO DAILY 07/07/21 07/07/21 History bisacodyL [Dulcolax] 10 mg RECTAL DAILY PRN 07/07/21 07/07/21 History clonazePAM [KlonoPIN] 1 mg PO HS 07/07/21 07/07/21 History Allergies Allergy/AdvReac Type Severity Reaction Status Date / Time cortisone Allergy Unknown Verified 07/07/21 17:45 lisinopril Allergy Unknown Verified 07/07/21 17:45 Sulfa (Sulfonamide Allergy Unknown Verified 07/07/21 17:45 Antibiotics) Physical Exam Vitals: Vital Signs Temp Pulse Resp BP Pulse Ox 07/08/21 06:00 94 26 H 95/57 96 07/08/21 05:00 96 26 H 85/60 96 07/08/21 04:00 95 16 87/54 94 L 07/08/21 03:49 30 H 07/08/21 03:00 97.8 F 94 30 H 84/50 95 07/08/21 02:00 102 H 31 H 91/57 95 07/08/21 01:00 103 H 33 H 101/81 97 07/08/21 00:00 98.2 F 30 H 100 07/07/21 23:00 98 32 H 121/67 99 07/07/21 22:00 99 24 111/60 99 07/07/21 21:00 110 H 18 112/56 96 07/07/21 20:23 105 H 18 137/83 97 07/07/21 19:53 110 H 24 139/76 95 07/07/21 19:40 110 H 24 153/72 96 07/07/21 19:20 112 H 24 153/78 95 07/07/21 18:15 114 H 24 153/77 98 07/07/21 18:05 115 H 24 144/78 96 07/07/21 18:00 124 H 26 H 124/57 85 L 07/07/21 17:50 120 H 30 H 110/67 85 L 07/07/21 17:40 120 H 36 H 108/64 85 L 07/07/21 17:16 75 L 07/07/21 17:11 32 H 07/07/21 17:03 97.4 F L 125 H 34 H 102/60 84 L Intake and Output 07/07/21 07/07/21 07/08/21 14:59 22:59 06:59 Intake Total 14.596 649.253 Output Total 370 Balance 14.596 279.253 Intake: IV 500 Dextrose 5% in Water 1, 500 000 ml @ 100 mls/hr IV . Q10H [facility] Rx#:[id number] Intake, IV Titration 14.596 149.253 Amount fentaNYL (PF). 1,000 mcg 14.596 96.162 In Sodium Chloride 0.9% 80 ml @ 0.5 MCG/KG/HR 3. 604 mls/hr IV .Q24H [facility] Rx#:[id number] propofoL 1,000 mg In 53.091 Empty Bag 1 bag @ Titrate IV .Q0M [facility] Rx#: [id number] Output: Urine 370 Other: Voiding Method Indwelling Catheter Weight 75.2 kg 75.2 kg -GENERAL: The patient is intubated and sedated. Well developed, well nourished. HEENT: Pupils are round and equally reacting to light. EOMI. No scleral icterus. No conjunctival pallor. Normocephalic, atraumatic. No pharyngeal erythema. No thyromegaly. CARDIOVASCULAR: S1 and S2 present. No murmurs, rubs, or gallops. -PULMONARY: Chest is clear to auscultation, no wheezing or crackles. Bilateral crepitation, melena left side ABDOMEN: Soft, nontender, nondistended, normoactive bowel sounds. No palpable organomegaly. MUSCULOSKELETAL: No joint swelling or deformity. EXTREMITIES: No cyanosis, clubbing, or pedal edema. NEUROLOGICAL: Gross neurological examination did not reveal any focal deficits. SKIN: No rashes. No petechiae Results CBC & Chem 7: 07/08/21 05:02 07/08/21 05:02 Labs: Abnormal Lab Results - Last 24 Hours (Table) 07/07/21 07/07/21 07/07/21 Range/Units 17:54 17:57 17:57 WBC 16.5 H (3.8-10.6) k/uL RBC 5.99 H (4.30-5.90) m/uL Hgb 18.4 H (13.0-17.5) gm/dL Hct 56.1 H (39.0-53.0) % Neutrophils # (1.3-7.7) k/uL Neutrophils # (Manual) 15.00 H (1.3-7.7) k/uL Lymphocytes # (Manual) 0.83 L (1.0-4.8) k/uL APTT (22.0-30.0) sec D-Dimer (<0.60) mg/L FEU ABG pO2 (83-108) mmHg ABG O2 Saturation (94-97) % Sodium (137-145) mmol/L Chloride (98-107) mmol/L Carbon Dioxide (22-30) mmol/L BUN (9-20) mg/dL Creatinine (0.66-1.25) mg/dL Glucose (74-99) mg/dL POC Glucose (mg/dL) 109 H (75-99) mg/dL Plasma Lactic Acid Jasiel (0.7-2.0) mmol/L Calcium (8.4-10.2) mg/dL Magnesium (1.6-2.3) mg/dL AST (17-59) U/L ALT (4-49) U/L Troponin I (0.000-0.034) ng/mL Total Protein (6.3-8.2) g/dL Albumin (3.5-5.0) g/dL Urine Protein 1+ H (Negative) Urine RBC 26 H (0-5) /hpf Urine WBC 17 H (0-5) /hpf Amorphous Sediment Rare H (None) /hpf Urine Bacteria Rare H (None) /hpf Hyaline Casts 79 H (0-2) /lpf Urine Mucus Many H (None) /hpf 1107/07/21 07/07/21 Range/Units 17:57 17:57 17:57 WBC (3.8-10.6) k/uL RBC (4.30-5.90) m/uL Hgb (13.0-17.5) gm/dL Hct (39.0-53.0) % Neutrophils # (1.3-7.7) k/uL Neutrophils # (Manual) (1.3-7.7) k/uL Lymphocytes # (Manual) (1.0-4.8) k/uL APTT (22.0-30.0) sec D-Dimer (<0.60) mg/L FEU ABG pO2 (83-108) mmHg ABG O2 Saturation (94-97) % Sodium 151 H (137-145) mmol/L Chloride 119 H (98-107) mmol/L Carbon Dioxide (22-30) mmol/L BUN 63 H (9-20) mg/dL Creatinine 1.84 H (0.66-1.25) mg/dL Glucose 121 H (74-99) mg/dL POC Glucose (mg/dL) (75-99) mg/dL Plasma Lactic Acid Jasiel 2.5 H* (0.7-2.0) mmol/L Calcium (8.4-10.2) mg/dL Magnesium 2.7 H (1.6-2.3) mg/dL AST (17-59) U/L ALT (4-49) U/L Troponin I 0.084 H* (0.000-0.034) ng/mL Total Protein 5.8 L (6.3-8.2) g/dL Albumin 3.2 L (3.5-5.0) g/dL Urine Protein (Negative) Urine RBC (0-5) /hpf Urine WBC (0-5) /hpf Amorphous Sediment (None) /hpf Urine Bacteria (None) /hpf Hyaline Casts (0-2) /lpf Urine Mucus (None) /hpf 07/07/21 07/07/21 07/07/21 Range/Units 18:26 20:38 22:44 WBC (3.8-10.6) k/uL RBC (4.30-5.90) m/uL Hgb (13.0-17.5) gm/dL Hct (39.0-53.0) % Neutrophils # (1.3-7.7) k/uL Neutrophils # (Manual) (1.3-7.7) k/uL Lymphocytes # (Manual) (1.0-4.8) k/uL APTT 21.0 L (22.0-30.0) sec D-Dimer 2.82 H (<0.60) mg/L FEU ABG pO2 67 L (83-108) mmHg ABG O2 Saturation 92.9 L (94-97) % Sodium (137-145) mmol/L Chloride (98-107) mmol/L Carbon Dioxide (22-30) mmol/L BUN (9-20) mg/dL Creatinine (0.66-1.25) mg/dL Glucose (74-99) mg/dL POC Glucose (mg/dL) (75-99) mg/dL Plasma Lactic Acid Jasiel (0.7-2.0) mmol/L Calcium (8.4-10.2) mg/dL Magnesium (1.6-2.3) mg/dL AST (17-59) U/L ALT (4-49) U/L Troponin I 0.240 H* (0.000-0.034) ng/mL Total Protein (6.3-8.2) g/dL Albumin (3.5-5.0) g/dL Urine Protein (Negative) Urine RBC (0-5) /hpf Urine WBC (0-5) /hpf Amorphous Sediment (None) /hpf Urine Bacteria (None) /hpf Hyaline Casts (0-2) /lpf Urine Mucus (None) /hpf 07/07/21 07/08/21 07/08/21 Range/Units 23:38 00:39 05:02 WBC 12.9 H (3.8-10.6) k/uL RBC (4.30-5.90) m/uL Hgb (13.0-17.5) gm/dL Hct (39.0-53.0) % Neutrophils # 10.9 H (1.3-7.7) k/uL Neutrophils # (Manual) (1.3-7.7) k/uL Lymphocytes # (Manual) (1.0-4.8) k/uL APTT (22.0-30.0) sec D-Dimer (<0.60) mg/L FEU ABG pO2 (83-108) mmHg ABG O2 Saturation (94-97) % Sodium (137-145) mmol/L Chloride (98-107) mmol/L Carbon Dioxide (22-30) mmol/L BUN (9-20) mg/dL Creatinine (0.66-1.25) mg/dL Glucose (74-99) mg/dL POC Glucose (mg/dL) 140 H (75-99) mg/dL Plasma Lactic Acid Jasiel (0.7-2.0) mmol/L Calcium (8.4-10.2) mg/dL Magnesium (1.6-2.3) mg/dL AST (17-59) U/L ALT (4-49) U/L Troponin I 0.281 H* (0.000-0.034) ng/mL Total Protein (6.3-8.2) g/dL Albumin (3.5-5.0) g/dL Urine Protein (Negative) Urine RBC (0-5) /hpf Urine WBC (0-5) /hpf Amorphous Sediment (None) /hpf Urine Bacteria (None) /hpf Hyaline Casts (0-2) /lpf Urine Mucus (None) /hpf 07/08/21 Range/Units 05:02 WBC (3.8-10.6) k/uL RBC (4.30-5.90) m/uL Hgb (13.0-17.5) gm/dL Hct (39.0-53.0) % Neutrophils # (1.3-7.7) k/uL Neutrophils # (Manual) (1.3-7.7) k/uL Lymphocytes # (Manual) (1.0-4.8) k/uL APTT (22.0-30.0) sec D-Dimer (<0.60) mg/L FEU ABG pO2 (83-108) mmHg ABG O2 Saturation (94-97) % Sodium (137-145) mmol/L Chloride 118 H (98-107) mmol/L Carbon Dioxide 20 L (22-30) mmol/L BUN 43 H (9-20) mg/dL Creatinine (0.66-1.25) mg/dL Glucose 298 H (74-99) mg/dL POC Glucose (mg/dL) (75-99) mg/dL Plasma Lactic Acid Jasiel (0.7-2.0) mmol/L Calcium 7.8 L (8.4-10.2) mg/dL Magnesium 2.4 H (1.6-2.3) mg/dL AST 156 H (17-59) U/L ALT 106 H (4-49) U/L Troponin I (0.000-0.034) ng/mL Total Protein 4.3 L (6.3-8.2) g/dL Albumin 2.2 L (3.5-5.0) g/dL Urine Protein (Negative) Urine RBC (0-5) /hpf Urine WBC (0-5) /hpf Amorphous Sediment (None) /hpf Urine Bacteria (None) /hpf Hyaline Casts (0-2) /lpf Urine Mucus (None) /hpf Microbiology - Last 24 Hours (Table) 07/07/21 18:04 Sputum Culture - Preliminary Sputum 07/07/21 17:57 Urine Culture - Preliminary Urine,Voided Thrombosis Risk Factor Assmnt - Choose All That Apply Each Risk Factor Represents 2 Points: Age 61-74 years Thrombosis Risk Factor Assessment Total Risk Factor Score: 2 Thrombosis Risk Factor Assessment Level: Low Risk Assessment and Plan Assessment: Bilateral pneumonia mainly left-sided patchy pneumonia with mucous plugging and atelectasis acute hypoxic respiratory failure, requiring mechanical ventilation Elevated troponins, rule out cardiac causes multinodular goiter history of dysphagia, status post PEG tube placement 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 Pulmonary/critical care team consult. Cardiology consult check echocardiogram Labs and medication were reviewed.. Continue same treatment. Continue with symptomatic treatment. Resume home medication. Monitor lytes and vitals. DVT and GI prophylaxis. Further recommendations depends on the clinical course of the patient DVT prophylaxis: Subcutan Lovenox GI Prophylaxis: Ppi Prognosis is guarded
--- NOTE | 2021-07-08 10:59 | CONS ---
CONSULTATION Ari Carty is a 70-year-old gentleman with a history of dementia who is a resident of a [facility]. He has been transferred here mainly with what seems to be a worsening mentation with shortness of breath and there was a suspicion that he may have aspirated. He apparently has a Lewy body dementia with baseline mental status, alert but not oriented, does not communicate. Very limited history was available. Patient has been intubated and also has orogastric tube as well. After arrival, he became hypoxic, was intubated. I am seeing him because of some troponin elevation. The patient has clinically what seems to be a mucous plugging as well. On the CT angio that was performed, the possibility of a mucus plug was mentioned. There is no evidence of any pulmonary embolism. Left lower lobe bronchus has cutoff. The patient does not communicate. Limited information is available. White count is elevated. Troponin is up to 0.2, both values. However, troponin elevation may be related to underlying hypoxia and may be a type 2 myocardial infarction because of oxygen mismatch. Very limited information is available. EKG does reveal some ST- segment depression with LVH. Underlying ischemia cannot be excluded. There is also some amount of tachycardia noted. PAST MEDICAL HISTORY: Remarkable for underlying Lewy body dementia with very limited mentation. No other information is available. MEDICATIONS: According to the notes, medications include Lopressor 25 mg b.i.d., Flomax 0.4 mg daily, amlodipine 2.5 mg daily. He also takes some melatonin and atorvastatin 20 mg daily, losartan 25 mg daily. ALLERGIES: HE IS ALLERGIC TO LISINOPRIL AND . PHYSICAL EXAMINATION: On examination, blood pressure is 90/60, pulse rate is about 93, sinus. HEENT unremarkable. Fundus was not examined. NECK is supple. JVD 1 cm. No carotid bruit. HEART exam reveals S1, S2 with tachycardia, short systolic murmur at the base. LUNGS revealed diminished air entry. Respiratory assisted breath sounds. ABDOMEN is soft. Lower EXTREMITIES reveal diminished pulses. CENTRAL NERVOUS SYSTEM assessment was not performed. IMPRESSION: 1. Probable aspiration pneumonia with respiratory failure. 2. Sinus tachycardia. 3. Troponin elevation suggestive of non-ST elevation myocardial infarction type 2 myocardial infarction with oxygen mismatch, but patient has EKG abnormalities suggestive of ischemia as well. 4. History of dementia. RECOMMENDATIONS: I am recommending that we add a small dose of beta barron, metoprolol tartrate 25 mg b.i.d., continue his other medications. Obtain portable echocardiogram. The patient is currently on enoxaparin 30 mg daily, but given the EKG changes, I would heparinize him for at least 24 to 48 hours and then we can switch to subcu heparin or Lovenox. We will obtain echocardiogram. Prognosis remains guarded. [id number] / IJN: [id number] /
--- NOTE | 2021-07-08 13:41 | P.CNPUL ---
History of Present Illness Consult date: 07/08/21 Requesting physician: Logan E Sheet Reason for consult: pneumonia, other (Acute respiratory failure requiring intubation and mechanical ventilation.) Chief complaint: Shortness of breath History of present illness: This is a 70-year-old white male with history of Lewy body dementia, history of being nonverbal. History of hypertension. and benign prostatic hypertrophy, history of Parkinson's disease. Patient was sent from [facility] with a concern of patient becoming more and more short of breath. And this has been noticed over the last 2 days. Nursing staff felt the patient may have aspirated. Patient is nonverbal. He was also noted to have significant urinary retention. Upon arrival to the ER, patient was unresponsive, and in severe respiratory distress. O2 saturation was 80% on nonrebreather mask, and not much history could be obtained from the patient. Patient had to be intubated by the ER physician shortly after he arrived to the ER, and it was felt that the patient may have extensive pneumonia involving the left lower lobe and left upper lobe, there is also a concern about the mucous plugging in the left lower lobe bronchus, however post intubation chest x-ray showed significant clearing of the airspace disease noted in the left lower lobe. In the meantime the patient was felt to be possibly septic, but no evidence of septic shock. Patient was given fluids, placed on mechanical ventilation, and admitted to the ICU. Placed on broad-spectrum antibiotics. And presently he is on tidal volume of 400 assist control rate of 30, FiO2 60% and PEEP of 5. Patient is requiring propofol, at 20 mcg/kg/m, he is also on fentanyl at 0.5 mcg/kg/h, patient is also on vancomycin and cefepime. Patient was seen by cardiology, and he was started also on heparin for his elevated troponin. ABG this morning showed a pO2 of 101 pCO2 of 36 pH of 7.41. WBC count is 12.9 hemoglobin 14.6. Basic metabolic profile is normal renal profile showed a BUN of 43 creatinine 1.03 PCR was negative for COVID-19 infection. Review of Systems ROS unobtainable: due to endotracheal tube Past Medical History Past Medical History: Unable to Obtain Additional Past Medical History / Comment(s): BPH, dysphagia, Lewy Body dementia, non-verbal Last Myocardial Infarction Date:: 2006 History of Any Multi-Drug Resistant Organisms: Unobtainable Past Surgical History: Unable to Obtain Past Anesthesia/Blood Transfusion Reactions: No Reported Reaction Past Psychological History: Unable to Obtain Smoking Status: Unknown if ever smoked Past Alcohol Use History: Unable to Obtain Past Drug Use History: Unable to Obtain Medications and Allergies Home Medications Medication Instructions Recorded Confirmed Type Atorvastatin [Lipitor] 20 mg PO HS 07/07/21 07/07/21 History Losartan [Cozaar] 25 mg PO DAILY 07/07/21 07/07/21 History Magnesium Hydroxide [Milk of 2,400 mg PO DAILY PRN 07/07/21 07/07/21 History Magnesia] Melatonin 5 mg PO HS 07/07/21 07/07/21 History Metoprolol Tartrate [Lopressor] 25 mg PO BID 07/07/21 07/07/21 History Tamsulosin HCl [Flomax] 0.4 mg PO DAILY 07/07/21 07/07/21 History amLODIPine [Norvasc] 2.5 mg PO DAILY 07/07/21 07/07/21 History bisacodyL [Dulcolax] 10 mg RECTAL DAILY PRN 07/07/21 07/07/21 History clonazePAM [KlonoPIN] 1 mg PO HS 07/07/21 07/07/21 History Allergies Allergy/AdvReac Type Severity Reaction Status Date / Time cortisone Allergy Unknown Verified 07/07/21 17:45 lisinopril Allergy Unknown Verified 07/07/21 17:45 Sulfa (Sulfonamide Allergy Unknown Verified 07/07/21 17:45 Antibiotics) Physical Exam Vitals: Vital Signs Temp Pulse Resp BP Pulse Ox 07/08/21 12:00 98.3 F 79 30 H 104/59 94 L 07/08/21 11:30 77 30 H 104/59 97 07/08/21 11:00 82 30 H 106/58 96 07/08/21 10:30 78 30 H 98/56 96 07/08/21 10:00 79 30 H 97 07/08/21 09:30 99 30 H 111/68 98 07/08/21 09:00 96 30 H 120/67 96 07/08/21 08:00 98.2 F 97 30 H 93/61 97 07/08/21 07:00 93 25 H 90/62 96 07/08/21 06:00 94 26 H 95/57 96 07/08/21 05:00 96 26 H 85/60 96 07/08/21 04:00 95 16 87/54 94 L 07/08/21 03:49 30 H 07/08/21 03:00 97.8 F 94 30 H 84/50 95 07/08/21 02:00 102 H 31 H 91/57 95 07/08/21 01:00 103 H 33 H 101/81 97 07/08/21 00:00 98.2 F 30 H 100 07/07/21 23:00 98 32 H 121/67 99 07/07/21 22:00 99 24 111/60 99 07/07/21 21:00 110 H 18 112/56 96 07/07/21 20:23 105 H 18 137/83 97 07/07/21 19:53 110 H 24 139/76 95 07/07/21 19:40 110 H 24 153/72 96 07/07/21 19:20 112 H 24 153/78 95 07/07/21 18:15 114 H 24 153/77 98 07/07/21 18:05 115 H 24 144/78 96 07/07/21 18:00 124 H 26 H 124/57 85 L 07/07/21 17:50 120 H 30 H 110/67 85 L 07/07/21 17:40 120 H 36 H 108/64 85 L 07/07/21 17:16 75 L 07/07/21 17:11 32 H 07/07/21 17:03 97.4 F L 125 H 34 H 102/60 84 L Intake and Output 07/07/21 07/08/21 07/08/21 22:59 06:59 14:59 Intake Total 14.596 649.253 700 Output Total 370 345 Balance 14.596 279.253 355 Intake: IV 500 700 D5.45 200 Dextrose 5% in Water 1, 500 500 000 ml @ 100 mls/hr IV . Q10H [facility] Rx#:[id number] Intake, IV Titration 14.596 149.253 Amount fentaNYL (PF). 1,000 mcg 14.596 96.162 In Sodium Chloride 0.9% 80 ml @ 0.5 MCG/KG/HR 3. 604 mls/hr IV .Q24H [facility] Rx#:[id number] propofoL 1,000 mg In 53.091 Empty Bag 1 bag @ Titrate IV .Q0M [facility] Rx#: [id number] Output: Urine 370 345 Other: Voiding Method Indwelling Catheter Indwelling Catheter Weight 75.2 kg 75.2 kg ABP, PAP, CO, CI - Last 8 Hours Arterial Blood Pressure 103/40 GENERAL: Revealed a 70-year-old white male, intubated, mechanically ventilated, extremely rigid HEENT: Pupils are round and equally reacting to light. EOMI. No scleral icterus. No conjunctival pallor. Normocephalic, atraumatic. No pharyngeal erythema. No thyromegaly. CARDIOVASCULAR: Stent SR S2, no S3 gallop. PULMONARY: Crackles and rhonchi noted bilaterally, symmetrical chest expansion noted. ABDOMEN: Soft, nontender, nondistended, normoactive bowel sounds. No palpable organomegaly. MUSCULOSKELETAL: Patient is noted to be rigid, has cogwheeling, no deformities otherwise. EXTREMITIES: No clubbing edema or cyanosis. NEUROLOGICAL: Unable to assess, patient is intubated and sedated, on propofol and fentanyl. SKIN: No rashes. No petechiae Acute: Could not assess. Results - Laboratory Findings CBC and BMP: 07/08/21 05:02 07/08/21 05:02 ABG ABG pH 7.41 (7.35-7.45) 07/08/21 09:12 ABG pCO2 36 mmHg (35-45) 07/08/21 09:12 ABG pO2 101 mmHg (83-108) 07/08/21 09:12 ABG O2 Saturation 98.3 % (94-97) H 07/08/21 09:12 PT/INR, D-dimer PT 10.2 sec (9.0-12.0) 07/07/21 20:38 INR 0.9 (<1.2) 07/07/21 20:38 D-Dimer 2.82 mg/L FEU (<0.60) H 07/07/21 20:38 Abnormal lab findings: Abnormal Labs 07/07/21 07/07/21 07/07/21 17:54 17:57 17:57 WBC 16.5 H RBC 5.99 H Hgb 18.4 H Hct 56.1 H Neutrophils # Neutrophils # (Manual) 15.00 H Lymphocytes # (Manual) 0.83 L APTT D-Dimer ABG pO2 ABG O2 Saturation Sodium Chloride Carbon Dioxide BUN Creatinine Glucose POC Glucose (mg/dL) 109 H Plasma Lactic Acid Jasiel Calcium Magnesium AST ALT Troponin I Total Protein Albumin Urine Protein 1+ H Urine RBC 26 H Urine WBC 17 H Amorphous Sediment Rare H Urine Bacteria Rare H Hyaline Casts 79 H Urine Mucus Many H 07/07/21 07/07/21 07/07/21 17:57 17:57 17:57 WBC RBC Hgb Hct Neutrophils # Neutrophils # (Manual) Lymphocytes # (Manual) APTT D-Dimer ABG pO2 ABG O2 Saturation Sodium 151 H Chloride 119 H Carbon Dioxide BUN 63 H Creatinine 1.84 H Glucose 121 H POC Glucose (mg/dL) Plasma Lactic Acid Jasiel 2.5 H* Calcium Magnesium 2.7 H AST ALT Troponin I 0.084 H* Total Protein 5.8 L Albumin 3.2 L Urine Protein Urine RBC Urine WBC Amorphous Sediment Urine Bacteria Hyaline Casts Urine Mucus 07/07/21 07/07/21 07/07/21 18:26 20:38 22:44 WBC RBC Hgb Hct Neutrophils # Neutrophils # (Manual) Lymphocytes # (Manual) APTT 21.0 L D-Dimer 2.82 H ABG pO2 67 L ABG O2 Saturation 92.9 L Sodium Chloride Carbon Dioxide BUN Creatinine Glucose POC Glucose (mg/dL) Plasma Lactic Acid Ajsiel Calcium Magnesium AST ALT Troponin I 0.240 H* Total Protein Albumin Urine Protein Urine RBC Urine WBC Amorphous Sediment Urine Bacteria Hyaline Casts Urine Mucus 07/07/21 07/08/21 07/08/21 23:38 00:39 05:02 WBC 12.9 H RBC Hgb Hct Neutrophils # 10.9 H Neutrophils # (Manual) Lymphocytes # (Manual) APTT D-Dimer ABG pO2 ABG O2 Saturation Sodium Chloride Carbon Dioxide BUN Creatinine Glucose POC Glucose (mg/dL) 140 H Plasma Lactic Acid Jasiel Calcium Magnesium AST ALT Troponin I 0.281 H* Total Protein Albumin Urine Protein Urine RBC Urine WBC Amorphous Sediment Urine Bacteria Hyaline Casts Urine Mucus 07/08/21 07/08/21 07/08/21 05:02 07:00 09:12 WBC RBC Hgb Hct Neutrophils # Neutrophils # (Manual) Lymphocytes # (Manual) APTT D-Dimer ABG pO2 ABG O2 Saturation 98.3 H Sodium Chloride 118 H Carbon Dioxide 20 L BUN 43 H Creatinine Glucose 298 H POC Glucose (mg/dL) 110 H Plasma Lactic Acid Jasiel Calcium 7.8 L Magnesium 2.4 H AST 156 H ALT 106 H Troponin I Total Protein 4.3 L Albumin 2.2 L Urine Protein Urine RBC Urine WBC Amorphous Sediment Urine Bacteria Hyaline Casts Urine Mucus - Diagnostic Findings Chest x-ray: image reviewed (As noted in HPI.) Assessment and Plan Assessment: Impression: Acute hypoxic respiratory failure secondary to aspiration pneumonia unless for otherwise. Chest x-ray and CT of the chest showed definite improvement since the patient was intubated, also noted improvement in his mucus plugging which was noted on the CT of the chest upon admission. Sepsis secondary to pneumonia is strongly suspected. History of fluid body dementia. Suspect underlying Parkinson's disease. Troponin leak. Recommendation: Continue antibiotics. Patient is presently on cefepime and vancomycin, may manzo sition to Zosyn was some of the cultures are back. Continue ventilatory support. Continue bronchodilators. Continue GI and DVT prophylaxis. Resume home meds. Overall prognosis is extremely poor and guarded. We will continue to follow. Time with Patient: Greater than 30
[2021-07-08] MEDS: DEXTROSE 5%-0.45% NACL 1,000 ML IV SCH ×2 (16:53→22:14)
[2021-07-08] MEDS: CEFEPIME 2 GM in SODIUM CHLORIDE 0.9% 100 ML IVPB SCH ×2 (16:56→23:57)
--- NOTE | 2021-07-08 18:57 | OP ---
OPERATIVE REPORT OPERATIVE REPORT: Placement of a right radial arterial line. PREOPERATIVE DIAGNOSIS: Acute hypoxic respiratory failure requiring intubation and mechanical ventilation. POSTOPERATIVE DIAGNOSIS: Acute hypoxic respiratory failure requiring intubation and mechanical ventilation. ANESTHESIA USED: None deployed. PROCEDURE DESCRIPTION: The right wrist was prepared in a sterile fashion. Drapes were applied. The right radial artery was palpated, cannulated, and a guidewire was placed. A Cook's catheter was inserted over the guidewire, and the guidewire was removed. Good blood flow and waveform were noted. No evidence of complications. Line was secured using 3.0 silk sutures. MMODL / IJN: [id number] /
--- NOTE | 2021-07-08 18:57 | OP ---
OPERATIVE REPORT OPERATIVE REPORT: Placement of right femoral triple-lumen catheter. PREOPERATIVE DIAGNOSIS: Acute hypoxic respiratory failure and acute sepsis. POSTOPERATIVE DIAGNOSIS: Acute hypoxic respiratory failure and acute sepsis. ANESTHESIA USED: 2 mL of 1% lidocaine. PROCEDURE DESCRIPTION: Patient was placed in supine position. The right groin was prepared in a sterile fashion and drapes were applied. The area was locally anesthetized. The right femoral vein was easily cannulated and a guidewire was placed. A triple-lumen catheter was inserted over the guidewire, and the guidewire was removed. Good blood flow was noted in the 3 different ports of the catheter. No complications. Line was secured using 3.0 silk sutures. MMODL / IJN: [id number] /
[2021-07-09] MEDS: fentaNYL (PF). 1,000 MCG in SODIUM CHLORIDE 0.9% 80 ML IV SCH (05:14)
[2021-07-09 05:47] LABS: Basophils # (A) 0.1 k/uL (0-0.2); Basophils % (A) 1 %; Eosinophils # (A) 0.1 k/uL (0-0.7); Eosinophils % (A) 0 %; HCT 44.1 % (39.0-53.0); HGB 14.2 gm/dL (13.0-17.5); Lymphocytes # (A) 1.5 k/uL (1.0-4.8); Lymphocytes % (A) 10 %; MCH 30.2 pg (25.0-35.0); MCHC 32.3 g/dL (31.0-37.0); MCV 93.5 fL (80.0-100.0); Mean Platelet Volume 10.1; Monocytes # (A) 0.3 k/uL (0-1.0); Monocytes % (A) 2 %; Neutrophils # (A) 13.6 k/uL (1.3-7.7); Neutrophils % (A) 86 %; Platelet Count 185 k/uL (150-450); RBC 4.72 m/uL (4.30-5.90); RDW 13.3 % (11.5-15.5); WBC 15.9 k/uL (3.8-10.6)
[2021-07-09 05:57] LABS: INR 1.1 (<1.2); Partial Thromboplastin Time 66.4 sec (22.0-30.0); Prothrombin Time 11.3 sec (9.0-12.0)
[2021-07-09 06:14] LABS: African American GFR (CKD) >90 (>60 ml/min/1.73 sqM); Non-African American GFR(CKD) >90 (>60 ml/min/1.73 sqM)
--- NOTE | 2021-07-09 06:52 | XR ---
EXAMINATION TYPE: XR chest 1V portable DATE OF EXAM: 07/09/2021 CLINICAL HISTORY: Difficulty breathing progress study. TECHNIQUE: Single AP portable semiupright view of the chest is obtained. COMPARISON: Chest x-ray from one and 2 days earlier FINDINGS: Current exam slightly suboptimal as entire left lung apex not included. Stable endotracheal and orogastric tubes. Lungs remain clear without pleural effusion seen bilaterally. Cardiac silhouette size is stable and w ithin normal limits with atherosclerotic change aortic knob. Visualized osseous structures are intact . IMPRESSION: No acute pulmonary process. No significant change from one day earlier.
[2021-07-09 07:23] LABS: ABG Base Excess -0.8 mmol/L; ABG HCO3 23 mmol/L (21-25); ABG Oxygen Saturation 94.7 % (94-97); ABG PCO2 32 mmHg (35-45); ABG PH 7.46 (7.35-7.45); ABG PO2 67 mmHg (83-108); ABG TCO2 24 mmol/L (19-24)
[2021-07-09 07:25] LABS: Allen Test Performed? no
[2021-07-09 07:58] LABS: Anion Gap 5 mmol/L; Blood Urea Nitrogen 27 mg/dL (9-20); Calcium 8.6 mg/dL (8.4-10.2); Carbon Dioxide 21 mmol/L (22-30); Chloride 120 mmol/L (98-107); Glucose 122 mg/dL (74-99); Potassium 3.5 mmol/L (3.5-5.1); Sodium 146 mmol/L (137-145)
[2021-07-09] MEDS ORDERED: VANCOMYCIN TROUGH DUE 1 EACH MISC MISCELLANE ONE (08:00)
[2021-07-09] MEDS ORDERED: METOPROLOL TARTRATE 50 MG TAB PO SCH (09:00)
--- NOTE | 2021-07-09 10:43 | PN ---
PROGRESS NOTE This is a 70-year-old gentleman with significant pneumonia and hypoxia who also has underlying dementia. His troponin has been elevated. There may be an associated myocardial damage-related to hypoxia. I am recommending that we leave him on a heparin drip for now and switch him to subcutaneous heparin tomorrow. Urine output is fair. Vitals are stable. S1-S2 heard normally. Short systolic murmur noted. Lungs reveal diminished air entry. Abdomen is soft. Lower extremities reveal diminished pulses. Patient remains on a ventilator. Echo revealed fair systolic function, ejection fraction of 50% to 55%. Prognosis remains guarded. MMODL / IJN: [id number] /
[2021-07-09] MEDS: CHLORHEXIDINE GLUCONATE 15 ML CUP MUCOUS MEM SCH ×2 (11:31→20:38)
[2021-07-09] MEDS: CEFEPIME 2 GM in SODIUM CHLORIDE 0.9% 100 ML IVPB SCH ×2 (11:32→17:31)
[2021-07-09] MEDS: DEXTROSE 5%-0.45% NACL 1,000 ML IV SCH ×2 (11:32→17:07)
[2021-07-09] MEDS: HEPARIN SOD,PORK IN 0.45% NACL 25,000 UNIT in 0.45% NACL 1 250ML.BAG IV SCH (11:32)
[2021-07-09] MEDS: PANTOPRAZOLE 40 MG/10 ML VIAL IVP SCH (11:35)
[2021-07-09] MEDS: METOPROLOL TARTRATE 50 MG TAB PO SCH ×2 (11:35→20:38)
[2021-07-09] MEDS: DEXMEDETOMIDINE/0.9% NACL(PMX) 400 MCG in EMPTY BAG 1 BAG IV SCH (12:36)
[2021-07-09] MEDS: VANCOMYCIN 1,500 MG in SODIUM CHLORIDE 0.9% 250 ML IVPB SCH (12:48)
--- NOTE | 2021-07-09 12:48 | P.PN ---
Subjective Progress Note Date: 07/09/21 Principal diagnosis: Acute hypoxic respiratory failure possibly secondary to aspiration pneumonia This is a 70-year-old white male with history of Lewy body dementia, history of being nonverbal. History of hypertension. and benign prostatic hypertrophy, history of Parkinson's disease. Patient was sent from [facility] with a concern of patient becoming more and more short of breath. And this has been noticed over the last 2 days. Nursing staff felt the patient may have aspirated. Patient is nonverbal. He was also noted to have significant urinary retention. Upon arrival to the ER, patient was unresponsive, and in severe respiratory distress. O2 saturation was 80% on nonrebreather mask, and not much history could be obtained from the patient. Patient had to be intubated by the ER physician shortly after he arrived to the ER, and it was felt that the patient may have extensive pneumonia involving the left lower lobe and left upper lobe, there is also a concern about the mucous plugging in the left lower lobe bronchus, however post intubation chest x-ray showed significant clearing of the airspace disease noted in the left lower lobe. In the meantime the patient was felt to be possibly septic, but no evidence of septic shock. Patient was given fluids, placed on mechanical ventilation, and admitted to the ICU. Placed on broad-spectrum antibiotics. And presently he is on tidal volume of 400 assist control rate of 30, FiO2 60% and PEEP of 5. Patient is requiring propofol, at 20 mcg/kg/m, he is also on fentanyl at 0.5 mcg/kg/h, patient is also on vancomycin and cefepime. Patient was seen by cardiology, and he was started also on heparin for his elevated troponin. ABG this morning showed a pO2 of 101 pCO2 of 36 pH of 7.41. WBC count is 12.9 hemoglobin 14.6. Basic metabolic profile is normal renal profile showed a BUN of 43 creatinine 1.03 PCR was negative for COVID-19 infection. The patient is seen today 07/09/2021 in follow-up in the intensive care unit. He remains intubated on mechanical ventilator in assist control mode at rate of 30, tidal volume 400, FiO2 35% and a PEEP of 5. Morning blood gases revealed a PaO2 of 67, pCO2 32, pH 7.46. Chest x-ray continues to show left lower lobe pneumonia. Some right lung involvement as well. Improved compared to yesterday. Remains sedated on propofol at 20 mcg/kg/m. Fentanyl drip at 0.5 mcg/kg/m. Heparin drip. Blood cultures reveal no growth. Urine culture rev eals no growth. Sputum culture is revealing gram-negative bacilli. He is on antibiotics in the form of vancomycin and cefepime. He is somewhat hypertensive. White count 15.9. Hemoglobin 14.2. Sodium 146. Potassium 3.5. Bicarb 21. Creatinine 0.84. Objective - Vital Signs Vital signs: Vital Signs Temp 98.0 F 07/09/21 12:00 Pulse 80 07/09/21 12:00 Resp 35 H 07/09/21 12:00 BP 107/62 07/09/21 08:00 Pulse Ox 97 07/09/21 12:00 Intake & Output 07/08/21 07/09/21 07/09/21 18:59 06:59 18:59 Intake Total 9478.734 3481.219 637.260 Output Total 665 440 225 Balance 212.816 7267.219 412.260 Weight 73.6 kg Intake: IV 1000 1200 525 Cefepime 2 gm In Sodium 25 Chloride 0.9% 100 ml @ 25 mls/hr IVPB Q8HR [facility] Rx# :[id number] D5.45 500 1200 500 Dextrose 5% in Water 1, 500 000 ml @ 100 mls/hr IV . Q10H [facility] Rx#:[id number] Intake, IV Titration 499.076 340.219 112.260 Amount Dextrose 5%-0.45% NaCl 1, 400 000 ml @ 100 mls/hr IV . Q10H [facility] Rx#:[id number] Heparin Sod,Pork in 0.45% 196.723 34.717 NaCl 25,000 unit In 0.45 % NaCl 1 250ml.bag @ 12 UNITS/KG/HR 9.024 mls/hr IV .Q24H [facility] Rx#: [id number] fentaNYL (PF). 1,000 mcg 80.178 In Sodium Chloride 0.9% 80 ml @ 0.5 MCG/KG/HR 3. 604 mls/hr IV .Q24H [facility] Rx#:[id number] propofoL 1,000 mg In 99.076 63.318 77.543 Empty Bag 1 bag @ Titrate IV .Q0M [facility] Rx#: [id number] Output: Urine 665 440 225 Other: Voiding Method Indwelling Catheter Indwelling Catheter ABP, PAP, CO, CI - Last Documented Arterial Blood Pressure 159/53 - Exam GENERAL EXAM: Intubated, sedated 62-year-old male patient, on mechanical ventilator with FiO2 of 35%, comfortable in no apparent distress. HEAD: Normocephalic. EYES: Sluggish reaction of pupils, equal size. NOSE: Clear with pink turbinates. THROAT: Oral endotracheal and gastric tube secured in place. No erythema or exudates. NECK: No masses, no JVD. CHEST: No chest wall deformity. LUNGS: Equal air entry with few scattered rhonchi bilaterally. CVS: S1 and S2 normal with no audible murmur, regular rhythm. ABDOMEN: No hepatosplenomegaly, normal bowel sounds, no guarding or rigidity. SPINE: No scoliosis or deformity SKIN: No rashes CENTRAL NERVOUS SYSTEM: Sedated, tone is normal in all 4 extremities. EXTREMITIES: There is no peripheral edema. No clubbing, no cyanosis. Peripheral pulses are intact. - Labs CBC & Chem 7: 07/09/21 05:20 07/09/21 05:20 Labs: Abnormal Lab Results - Last 24 Hours (Table) 07/08/21 07/09/21 07/09/21 Range/Units 14:11 05:20 05:20 WBC (3.8-10.6) k/uL Neutrophils # (1.3-7.7) k/uL APTT 53.5 H 66.4 H (22.0-30.0) sec ABG pH (7.35-7.45) ABG pCO2 (35-45) mmHg ABG pO2 (83-108) mmHg Sodium 146 H (137-145) mmol/L Chloride 120 H (98-107) mmol/L Carbon Dioxide 21 L (22-30) mmol/L BUN 27 H (9-20) mg/dL Glucose 122 H (74-99) mg/dL 07/09/21 07/09/21 Range/Units 05:20 07:21 WBC 15.9 H (3.8-10.6) k/uL Neutrophils # 13.6 H (1.3-7.7) k/uL APTT (22.0-30.0) sec ABG pH 7.46 H (7.35-7.45) ABG pCO2 32 L (35-45) mmHg ABG pO2 67 L (83-108) mmHg Sodium (137-145) mmol/L Chloride (98-107) mmol/L Carbon Dioxide (22-30) mmol/L BUN (9-20) mg/dL Glucose (74-99) mg/dL Microbiology - Last 24 Hours (Table) 07/07/21 17:57 Blood Culture - Preliminary Blood No Growth after 24 hours 07/07/21 17:57 Blood Culture - Preliminary Blood No Growth after 24 hours 07/07/21 17:57 Urine Culture - Final Urine,Voided 07/07/21 18:04 Gram Stain - Preliminary Sputum Sputum Culture - Preliminary Gram Neg Bacilli Assessment and Plan Assessment: 1 Acute hypoxic respiratory failure secondary to aspiration pneumonia requiring intubation mechanical ventilatory support. 2 Sepsis secondary to pneumonia, sputum culture positive for gram-negative bacilli 3 Troponin leak, ST and T wave abnormalities, currently on a heparin drip 3 History of Lewy body dementia, nonverbal at baseline 4 Underlying Parkinson's disease 5 History of hypertension 6 custodial resident Plan: The patient was seen and evaluated by Dr. Vela Chest x-ray, ABGs and labs reviewed We will initiate clevidipine for hypertension Transitioned to Precedex Daily interruption of sedation Remains on a heparin drip Remains on vancomycin and cefepime Follow-up chest x-ray, ABGs and labs in the a.m. We will continue to follow and make further recommendations based on his clinical status Critical care time 38 minutes I, the cosigning physician, performed a history & physical examination of the patient. Lungs sounds with bilateral scattered rhonchi. Maintaining good O2 saturations in the 90s on 35% FiO2 via the mechanical ventilator. I discussed the assessment and plan of care with my nurse practitioner, Tonya Nieves. I attest to the above note as dictated by her.
[2021-07-09] MEDS ORDERED: VANCOMYCIN 1,500 MG in SODIUM CHLORIDE 0.9% 250 ML IVPB SCH (13:00)
[2021-07-09 14:15] LABS: Glucose,Whole Blood 114 mg/dL (75-99)
--- NOTE | 2021-07-09 15:02 | CDI ---
Documentation Clarification Form Date: 07/09/2021 02:33:08 PM From: Yeni Burt RN, CCDS Admit Date: 07/07/2021 07:33:00 PM Patient Name: Ari Carty Visit Number: [id number] Discharge Date: ATTENTION: The Clinical Documentation Specialists (CDI) and [facility] Coding Staff appreciate your assistance in clarifying documentation. Please respond to the clarification below the line at the bottom and electronically sign. The CDI & [facility] Coding staff will review the response and follow-up if needed. Please note: Queries are made part of the Legal Health Record. If you have any questions, please contact the author of this message via ITS. Dr. Ford E Sheet The patient presented with the following clinical indicators. Additional clarification regarding the etiology/cause of the clinical indicators is requested. 07/07ED assessment: Sepsis with acute hypoxic respiratory failure, sinus tachycardia, JOEY (acute kidney injury) UTI, Elevated lactic acid level. 07/08 Pulmonary consult: Sepsis secondary to pneumonia is strongly suspected 07/09 pulmonary notes: Acute hypoxic respiratory secondary to aspiration pneumonia . Sepsis secondary to pneumonia, sputum culture positive for gram-negative bacilli History/Risk Factors: Dysphagia, Lewy Body Dementia, Non-verbal Clinical Indicators: 70-year-old male ED with concern for difficulty in breathing. He is in obvious respiratory distress, tachypnea, using accessory muscles for breathing. GCS is at best 7. 07/07 Vital sign: 102/60 125 34 97.4 84 % RA 07/07 Labs: WBC 16.5 HGB 18.4 HCT 56.1, NA+ 151, BUN 63, CR 1.84; Lactic acid 2.5; Troponin 0.084, 0.240, COVID negative 07/07 UA: WBC 17, Bacteria rare, Hyaline Casts 79 07/07 CXR:: minimal patchy airspace opacities bilaterally versus atelectasis Treatment: ICU/Telemetry monitoring Cefepime HCL 2 GM IVPB Q8 HRS Mechanical vent monitoring per pulmonary Vancomycin 11,500 MG IIV (PTD) Blood cultures pending In your professional opinion, please clarify if these findings signify one of the following conditions: [ ] Sepsis POA [ ] Sepsis, Not POA [ ] Sepsis ruled out [ ] Severe Sepsis with organ failure [ ] Septic Shock [ ] Other, please specify [ ] Unable to determine SIRS Criteria: 2 or more of the following may indicate SIRS -Temperature < 96.8F (36C) or > 101.0F (38.3C) -Heart Rate > 90 bpm -Respiratory Rate > 20 breaths/min or PaCO2 < 32 mmHg -White Blood Cell Count > 12,000 or < 4,000 cells/mm3 or > 10% bands (Template Last Reviewed: September 2020) no sepsis MTDD
[2021-07-09] MEDS: CLEVIDIPINE BUTYRATE 25 MG in EMPTY BAG 1 BAG IV SCH ×2 (17:06→19:02)
--- NOTE | 2021-07-09 18:42 | P.PN ---
Subjective This is a pleasant 70 years old male with past medical history of BPH, dysphagia, Lewy Body dementia, . Patient was sent from [facility] for shortness of breath and possible aspiration pneumonia. Pt is non verbal. Patient could not provide information so it was obtained from chart and staff Upon Arrival patient was tachypneic, tachycardic, hypoxic with saturation of 84% on room air. Patient had to be intubated. Currently he is saturating 96% on mechanical ventilation as patient was intubated in the emergency room. Patient has leukocytosis of 16.5 and 12.9. Hemoglobin 14.6 and platelet normal. INR 0.9 and d-dimer 2.8. ABG pH 7.3 with normal, pCO2 39 normal and pO2 67 low BMP showing hypernatremia 151, high creatinine 1.8 and high lactic acid 2.5. This came down to sodium 141, normal creatinine 1.0 and lactic acid down to normal at 1.6. Liver enzymes trending up with AST was 56 and ALT 106. Troponin elevated at 0.08 and 0.22. ProBNP 269 Urine analysis showed 1+ protein, 26 RBCs and WBCs 17. covid and influenza viruses are not detected Chest x-ray showing minimal patchy airspace opacity bilateral versus atelectasis. CTA of the chest, no pulmonary embolism. There is abrupt cutoff of the left lower lobe bronchus with endotracheal dilatation and hypodensity which may represent mucous plugging. There is also endobronchial hypodensity of the left upper lobe perihilar region. Left lower lobe atelectasis. Patchy multilobar airspace opacity, predominantly of the left upper and left lower lobes. Enteric tube distal tip in the proximal duodenum. Heterogeneous nodular thyroid with recommendation for thyroid ultrasound CT of the brain: No acute process. In the emergency room patient was started on cefepime and IV vancomycin cardiology and pulmonary team were consulted 07/09/2021 Patient remains on intubated on mechanical ventilation with pulmonary/critical care team followed closely. P [place]. FiO2 of 30%. He is actually hypertensive and today he was initiated on cleviprex drip . A stable except for mild leukocytosis of 15.9 K. Chest x-ray clear however was pneumonia merely on the left side. He remains on heparin drip for non-STEMI He's sputum culture is growing Klebsiella He still on cefepime and IV vancomycin Objective - Vital Signs Vital signs: Vital Signs Temp 98.0 F 07/09/21 12:00 Pulse 70 07/09/21 14:00 Resp 36 H 07/09/21 14:00 BP 107/62 07/09/21 08:00 Pulse Ox 98 07/09/21 14:00 Intake & Output 07/08/21 07/09/21 07/09/21 18:59 06:59 18:59 Intake Total 8343.203 0119.219 935.354 Output Total 665 440 295 Balance 880.676 4560.219 640.354 Weight 73.6 kg 73.6 kg Intake: IV 1000 1200 775 Cefepime 2 gm In Sodium 75 Chloride 0.9% 100 ml @ 25 mls/hr IVPB Q8HR [facility] Rx# :[id number] D5.45 500 1200 700 Dextrose 5% in Water 1, 500 000 ml @ 100 mls/hr IV . Q10H [facility] Rx#:[id number] Intake, IV Titration 499.076 340.219 160.354 Amount Dexmedetomidine/0.9% NaCl 8.526 (Pmx) 400 mcg In Empty Bag 1 bag @ 0.2 MCG/KG/HR 3.68 mls/hr IV .Q24H [facility] Rx#:[id number] Dextrose 5%-0.45% NaCl 1, 400 000 ml @ 100 mls/hr IV . Q10H [facility] Rx#:[id number] Heparin Sod,Pork in 0.45% 196.723 34.717 NaCl 25,000 unit In 0.45 % NaCl 1 250ml.bag @ 12 UNITS/KG/HR 9.024 mls/hr IV .Q24H [facility] Rx#: [id number] fentaNYL (PF). 1,000 mcg 80.178 27.571 In Sodium Chloride 0.9% 80 ml @ 0.5 MCG/KG/HR 3. 604 mls/hr IV .Q24H [facility] Rx#:[id number] propofoL 1,000 mg In 99.076 63.318 89.540 Empty Bag 1 bag @ Titrate IV .Q0M [facility] Rx#: [id number] Output: Urine 665 440 295 Other: Voiding Method Indwelling Catheter Indwelling Catheter Indwelling Catheter ABP, PAP, CO, CI - Last Documented Arterial Blood Pressure 144/49 - Exam -GENERAL: The patient is sedated and intubated HEENT: Pupils are round and equally reacting to light. EOMI. No scleral icterus. No conjunctival pallor. Normocephalic, atraumatic. No pharyngeal erythema. No thyromegaly. CARDIOVASCULAR: S1 and S2 present. No murmurs, rubs, or gallops. -PULMONARY: Chest is clear to auscultation, no wheezing or crackles. Bilateral crepitation ABDOMEN: Soft, nontender, nondistended, normoactive bowel sounds. No palpable organomegaly. MUSCULOSKELETAL: No joint swelling or deformity. EXTREMITIES: No cyanosis, clubbing, or pedal edema. NEUROLOGICAL: Gross neurological examination did not reveal any focal deficits. SKIN: No rashes. no petechiae. - Labs CBC & Chem 7: 07/09/21 05:20 07/09/21 05:20 Labs: Abnormal Lab Results - Last 24 Hours (Table) 07/09/21 07/09/21 07/09/21 Range/Units 05:20 05:20 05:20 WBC 15.9 H (3.8-10.6) k/uL Neutrophils # 13.6 H (1.3-7.7) k/uL APTT 66.4 H (22.0-30.0) sec ABG pH (7.35-7.45) ABG pCO2 (35-45) mmHg ABG pO2 (83-108) mmHg Sodium 146 H (137-145) mmol/L Chloride 120 H (98-107) mmol/L Carbon Dioxide 21 L (22-30) mmol/L BUN 27 H (9-20) mg/dL Glucose 122 H (74-99) mg/dL POC Glucose (mg/dL) (75-99) mg/dL 07/09/21 07/09/21 07/09/21 Range/Units 07:21 13:49 14:14 WBC (3.8-10.6) k/uL Neutrophils # (1.3-7.7) k/uL APTT 47.6 H (22.0-30.0) sec ABG pH 7.46 H (7.35-7.45) ABG pCO2 32 L (35-45) mmHg ABG pO2 67 L (83-108) mmHg Sodium (137-145) mmol/L Chloride (98-107) mmol/L Carbon Dioxide (22-30) mmol/L BUN (9-20) mg/dL Glucose (74-99) mg/dL POC Glucose (mg/dL) 114 H (75-99) mg/dL Microbiology - Last 24 Hours (Table) 07/07/21 18:04 Gram Stain - Final Sputum Sputum Culture - Final Klebsiella pneumoniae 07/07/21 17:57 Blood Culture - Preliminary Blood No Growth after 24 hours 07/07/21 17:57 Blood Culture - Preliminary Blood No Growth after 24 hours 07/07/21 17:57 Urine Culture - Final Urine,Voided Assessment and Plan Assessment: Bilateral pneumonia mainly left-sided patchy pneumonia with mucous plugging and atelectasis acute hypoxic respiratory failure, requiring mechanical ventilation Elevated troponins, possible none STEMI multinodular goiter history of dysphagia, status post PEG tube placement 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 Cardiology consult Labs and medication were reviewed.. Continue same treatment. Continue with symptomatic treatment. Resume home medication. Monitor lytes and vitals. DVT and GI prophylaxis. Further recommendations depends on the clinical course of the patient DVT prophylaxis: Heparin GI Prophylaxis: Ppi Prognosis is guarded
[2021-07-09] MEDS: VANCOMYCIN 1,250 MG in SODIUM CHLORIDE 0.9% 250 ML IVPB SCH (22:36)
[2021-07-10 00:07] LABS: Glucose,Whole Blood 130 mg/dL (75-99)
[2021-07-10] MEDS: CEFEPIME 2 GM in SODIUM CHLORIDE 0.9% 100 ML IVPB SCH ×3 (03:39→15:50)
[2021-07-10 05:25] LABS: Glucose,Whole Blood 115 mg/dL (75-99)
[2021-07-10 05:31] LABS: Basophils % (A) 0 %; Eosinophils # (A) 0.1 k/uL (0-0.7); Eosinophils % (A) 1 %; HCT 39.6 % (39.0-53.0); HGB 12.9 gm/dL (13.0-17.5); Lymphocytes # (A) 1.3 k/uL (1.0-4.8); Lymphocytes % (A) 9 %; MCH 29.9 pg (25.0-35.0); MCHC 32.5 g/dL (31.0-37.0); MCV 91.9 fL (80.0-100.0); Mean Platelet Volume 10.5; Monocytes # (A) 0.4 k/uL (0-1.0); Monocytes % (A) 3 %; Neutrophils # (A) 11.8 k/uL (1.3-7.7); Neutrophils % (A) 85 %; Platelet Count 168 k/uL (150-450); RBC 4.31 m/uL (4.30-5.90); RDW 13.2 % (11.5-15.5); WBC 13.8 k/uL (3.8-10.6)
[2021-07-10 06:04] LABS: African American GFR (CKD) >90 (>60 ml/min/1.73 sqM); Anion Gap 3 mmol/L; Blood Urea Nitrogen 18 mg/dL (9-20); Calcium 7.8 mg/dL (8.4-10.2); Carbon Dioxide 21 mmol/L (22-30); Chloride 116 mmol/L (98-107); Glucose 123 mg/dL (74-99); Non-African American GFR(CKD) >90 (>60 ml/min/1.73 sqM); Sodium 140 mmol/L (137-145)
[2021-07-10 06:08] LABS: ABG Base Excess -0.6 mmol/L; ABG HCO3 23 mmol/L (21-25); ABG Oxygen Saturation 97.8 % (94-97); ABG PCO2 33 mmHg (35-45); ABG PH 7.46 (7.35-7.45); ABG PO2 82 mmHg (83-108); ABG TCO2 24 mmol/L (19-24); Allen Test Performed? Yes
[2021-07-10] MEDS ORDERED: POTASSIUM BICARBONATE/CIT AC 20 MEQ TABLET.EFF NG-TUBE SCH (07:00)
[2021-07-10] MEDS: DEXMEDETOMIDINE/0.9% NACL(PMX) 400 MCG in EMPTY BAG 1 BAG IV SCH (07:02)
--- NOTE | 2021-07-10 08:05 | XR ---
EXAMINATION TYPE: XR chest 1V portable DATE OF EXAM: 07/10/2021 Comparison: 07/09/2021 Clinical History: 70 year-old male tube placement Findings: ET tube tip at the level of the medial clavicular heads. NG tube courses below the diaphragm. The laura ehole is at the GE junction level. Heart normal size. Aorta and pulmonary vasculature within normal l imits. Hyperinflation. Mild patchy basilar opacities, left greater than right has increased. Impression: COPD with new, mild left greater than right basilar infiltrates.
[2021-07-10] MEDS: CHLORHEXIDINE GLUCONATE 15 ML CUP MUCOUS MEM SCH ×2 (08:11→21:49)
[2021-07-10] MEDS: PANTOPRAZOLE 40 MG/10 ML VIAL IVP SCH (08:23)
[2021-07-10] MEDS: DEXTROSE 5%-0.45% NACL 1,000 ML IV SCH ×2 (08:23→14:35)
[2021-07-10] MEDS: POTASSIUM CHLORIDE 20 MEQ in WATER FOR INJECTION 1 100ML.BAG IVPB SCH ×3 (08:24→23:41)
[2021-07-10] MEDS ORDERED: POTASSIUM CHLORIDE 20 MEQ in WATER FOR INJECTION 1 100ML.BAG IVPB STA (08:44)
[2021-07-10] MEDS: HEPARIN SODIUM,PORCINE/PF 5,000 UNIT/0.5 ML SYRINGE SQ SCH ×2 (09:16→21:49)
[2021-07-10] MEDS: VANCOMYCIN 1,250 MG in SODIUM CHLORIDE 0.9% 250 ML IVPB SCH ×3 (09:25→22:56)
[2021-07-10] MEDS: METOPROLOL TARTRATE 50 MG TAB PO SCH ×2 (09:59→21:49)
--- NOTE | 2021-07-10 10:11 | P.PN ---
Subjective Progress Note Date: 07/10/21 Principal diagnosis: Acute hypoxic respiratory failure secondary to aspiration pneumonia requiring intubation and mechanical ventilation. This is a 70-year-old white male with history of Lewy body dementia, history of being nonverbal. History of hypertension. and benign prostatic hypertrophy, history of Parkinson's disease. Patient was sent from [facility] with a concern of patient becoming more and more short of breath. And this has been noticed over the last 2 days. Nursing staff felt the patient may have aspirated. Patient is nonverbal. He was also noted to have significant urinary retention. Upon arrival to the ER, patient was unresponsive, and in severe respiratory distress. O2 saturation was 80% on nonrebreather mask, and not much history could be obtained from the patient. Patient had to be intubated by the ER physician shortly after he arrived to the ER, and it was felt that the patient may have extensive pneumonia involving the left lower lobe and left upper lobe, there is also a concern about the mucous plugging in the left lower lobe bronchus, however post intubation chest x-ray showed significant clearing of the airspace disease noted in the left lower lobe. In the meantime the patient was felt to be possibly septic, but no evidence of septic shock. Patient was given fluids, placed on mechanical ventilation, and admitted to the ICU. Placed on broad-spectrum antibiotics. And presently he is on tidal volume of 400 assist control rate of 30, FiO2 60% and PEEP of 5. Patient is requiring propofol, at 20 mcg/kg/m, he is also on fentanyl at 0.5 mcg/kg/h, patient is also on vancomycin and cefepime. Patient was seen by cardiology, and he was started also on heparin for his elevated troponin. ABG this morning showed a pO2 of 101 pCO2 of 36 pH of 7.41. WBC count is 12.9 hemoglobin 14.6. Basic metabolic profile is normal renal profile showed a BUN of 43 creatinine 1.03 PCR was negative for COVID-19 infection. The patient is seen today 07/09/2021 in follow-up in the intensive care unit. He remains intubated on mechanical ventilator in assist control mode at rate of 30, tidal volume 400, FiO2 35% and a PEEP of 5. Morning blood gases revealed a PaO2 of 67, pCO2 32, pH 7.46. Chest x-ray continues to show left lower lobe pneumonia. Some right lung involvement as well. Improved compared to yesterday. Remains sedated on propofol at 20 mcg/kg/m. Fentanyl drip at 0.5 mcg/kg/m. Heparin drip. Blood cultures reveal no growth. Urine culture reveals no growth. Sputum culture is revealing gram-negative bacilli. He is on antibiotics in the form of vancomycin and cefepime. He is somewhat hypertensive. White count 15.9. Hemoglobin 14.2. Sodium 146. Potassium 3.5. Bicarb 21. Creatinine 0.84. Reevaluated today on 07/10/2021, patient remains in the intensive care unit, patient was intubated yesterday, however early this morning the patient extubated himself, and he tolerated the extubation well. Presently he is off Precedex, off sedatives and narcotics, off mechanical ventilation, and chest x- ray early this morning when he was intubated showed minimal bibasilar infiltrates/atelectasis. Patient is on few liters nasal cannula, does not seem to be in any distress, a nasogastric tube was placed, and follow-up chest x-ray showed adequate placement of the nasogastric tube. ABG earlier today showed a pO2 of 82 pCO2 33 pH of 7.46. WBC count is 13.8 hemoglobin 12.9, patient is hypokalemic being corrected as per protocol. Renal profile is normal electrolytes are otherwise normal. Objective - Vital Signs Vital signs: Vital Signs Temp 98.1 F 07/10/21 08:00 Pulse 82 07/10/21 09:00 Resp 15 07/10/21 09:00 BP 107/62 07/09/21 08:00 Pulse Ox 95 07/10/21 09:00 Intake & Output 07/09/21 07/10/21 07/10/21 18:59 06:59 18:59 Intake Total 2199.646 9587.074 847.893 Output Total 495 555 250 Balance 779.576 810.074 597.893 Weight 73.6 kg 76 kg Intake: IV 1075 1200 650 Cefepime 2 gm In Sodium 175 100 Chloride 0.9% 100 ml @ 25 mls/hr IVPB Q8HR [facility] Rx# :[id number] D5.45 900 1200 300 Vancomycin 1,250 mg In 250 Sodium Chloride 0.9% 250 ml @ 125 mls/hr IVPB Q8H [facility] Rx#:[id number] Intake, IV Titration 189.576 115.074 197.893 Amount Clevidipine Butyrate 25 51.200 mg In Empty Bag 1 bag @ 1 MG/HR 2 mls/hr IV .Q24H [facility] Rx#:[id number] Dexmedetomidine/0.9% NaCl 36.126 63.874 1.349 (Pmx) 400 mcg In Empty Bag 1 bag @ 0.2 MCG/KG/HR 3.68 mls/hr IV .Q24H [facility] Rx#:[id number] Heparin Sod,Pork in 0.45% 34.717 149.272 NaCl 25,000 unit In 0.45 % NaCl 1 250ml.bag @ 12 UNITS/KG/HR 9.024 mls/hr IV .Q24H [facility] Rx#: [id number] fentaNYL (PF). 1,000 mcg 29.193 47.272 In Sodium Chloride 0.9% 80 ml @ 0.5 MCG/KG/HR 3. 604 mls/hr IV .Q24H [facility] Rx#:[id number] propofoL 1,000 mg In 89.540 Empty Bag 1 bag @ Titrate IV .Q0M [facility] Rx#: [id number] Tube Feeding 10 20 Other 30 Output: Urine 495 555 250 Other: Voiding Method Indwelling Catheter Indwelling Catheter Indwelling Catheter ABP, PAP, CO, CI - Last Documented Arterial Blood Pressure 145/53 - Exam Physical Exam: Revealed a 70-year-old white male encephalopathic, unresponsive to any stimuli, opens eyes only to deep painful stimuli or verbal stimuli, however there is evidence of upwar gaze deviation noted in both eyes. Patient does not follow any instructions, he is nonverbal. HEENT:[Neck is supple.] [No neck masses.] [No thyromegaly.] [No JVD.] Chest: [Minimal fine crackles at the bases diminished breath sounds at the bases. Symmetrical chest expansion. Cardiac Exam: [Normal S1 and S2, no S3 gallop, no murmur.] Abdomen: [Soft, nontender, no megaly, no rebound, no guarding, normal bowel sounds.] Extremities: [No clubbing, no edema, no cyanosis.] Neurological Exam: Patient is encephalopathic, opens eyes only but there is upward gaze deviation in both eyes. Patient is rigid, and poor mental status, Psychiatric: Unable to assess, patient has blunt affect Skin: No rashes. - Labs CBC & Chem 7: 07/10/21 05:15 07/10/21 05:15 Labs: Abnormal Lab Results - Last 24 Hours (Table) 07/09/21 07/09/21 07/10/21 Range/Units 13:49 14:14 00:05 WBC (3.8-10.6) k/uL Hgb (13.0-17.5) gm/dL Neutrophils # (1.3-7.7) k/uL APTT 47.6 H (22.0-30.0) sec ABG pH (7.35-7.45) ABG pCO2 (35-45) mmHg ABG pO2 (83-108) mmHg ABG O2 Saturation (94-97) % Potassium (3.5-5.1) mmol/L Chloride (98-107) mmol/L Carbon Dioxide (22-30) mmol/L Glucose (74-99) mg/dL POC Glucose (mg/dL) 114 H 130 H (75-99) mg/dL Calcium (8.4-10.2) mg/dL 07/10/21 07/10/21 07/10/21 Range/Units 05:15 05:15 05:15 WBC 13.8 H (3.8-10.6) k/uL Hgb 12.9 L (13.0-17.5) gm/dL Neutrophils # 11.8 H (1.3-7.7) k/uL APTT 38.2 H (22.0-30.0) sec ABG pH (7.35-7.45) ABG pCO2 (35-45) mmHg ABG pO2 (83-108) mmHg ABG O2 Saturation (94-97) % Potassium 3.0 L (3.5-5.1) mmol/L Chloride 116 H (98-107) mmol/L Carbon Dioxide 21 L (22-30) mmol/L Glucose 123 H (74-99) mg/dL POC Glucose (mg/dL) (75-99) mg/dL Calcium 7.8 L (8.4-10.2) mg/dL 07/10/21 07/10/21 Range/Units 05:23 06:03 WBC (3.8-10.6) k/uL Hgb (13.0-17.5) gm/dL Neutrophils # (1.3-7.7) k/uL APTT (22.0-30.0) sec ABG pH 7.46 H (7.35-7.45) ABG pCO2 33 L (35-45) mmHg ABG pO2 82 L (83-108) mmHg ABG O2 Saturation 97.8 H (94-97) % Potassium (3.5-5.1) mmol/L Chloride (98-107) mmol/L Carbon Dioxide (22-30) mmol/L Glucose (74-99) mg/dL POC Glucose (mg/dL) 115 H (75-99) mg/dL Calcium (8.4-10.2) mg/dL Microbiology - Last 24 Hours (Table) 07/07/21 17:57 Blood Culture - Preliminary Blood No Growth after 48 hours 07/07/21 17:57 Blood Culture - Preliminary Blood No Growth after 48 hours 07/07/21 18:04 Gram Stain - Final Sputum Sputum Culture - Final Klebsiella pneumoniae Assessment and Plan Assessment: Impression: Acute hypoxic respiratory failure secondary to aspiration pneumonia Sepsis secondary to pneumonia is strongly suspected. History of fluid body dementia. Suspect underlying Parkinson's disease. Troponin leak. Patient is on heparin as per cardiology. Self extubation on 07/10/21. Recommendation: Continue antibiotics. Continue oxygen and titrate accordingly. Continue bronchodilators. Continue GI and DVT prophylaxis. Heparin to be addressed by cardiology on the case. Patient is relatively high risk for reintubation, CODE STATUS remains full. Overall prognosis is extremely poor and guarded. Critical care time is more than 30 minutes We will continue to follow. Time with Patient: Greater than 30
--- NOTE | 2021-07-10 10:19 | XR ---
EXAMINATION TYPE: XR chest 1V portable DATE OF EXAM: 07/10/2021 Comparison: 07/10/2021, earlier today Clinical History: 70-year-old male NG tube placement Findings: NG tube is in place with the sidehole just below the level of the GE junction. Heart normal size.. Hy perinflation. Patchy lower lung opacities have increased. Impression: COPD with increasing patchy bibasilar infiltrates.
--- NOTE | 2021-07-10 11:05 | XR ---
EXAMINATION TYPE: XR chest 1V DATE OF EXAM: 07/10/2021 COMPARISON: Earlier today HISTORY: 70-year-old male intubation TECHNIQUE: Single frontal view of the chest is obtained. FINDINGS: ET tube tip at the level of the medial clavicular heads. NG tube courses below the diaphragm. Side ho le just below the GE junction level. Hyperinflation. Interval volume loss left hemithorax with slight leftward shift of the heart. Worsening opacity left mid and lower lung and similar interstitial dens ity right mid and lower lung. IMPRESSION: 1. ET tube tip at the level of the medial clavicular heads. 2. Worsening aeration on the left with development of volume loss and increasing patchy infiltrate le ft mid and lower lung. 3. Similar interstitial infiltrate right lower lung.
[2021-07-10 11:11] LABS: ABG Base Excess -2.3 mmol/L; ABG HCO3 22 mmol/L (21-25); ABG Oxygen Saturation 87.8 % (94-97); ABG PCO2 33 mmHg (35-45); ABG PH 7.44 (7.35-7.45); ABG TCO2 23 mmol/L (19-24); Allen Test Performed? Yes
[2021-07-10 11:15] LABS: ABG PO2 49 mmHg (83-108)
[2021-07-10] MEDS ORDERED: POTASSIUM CHLORIDE 20 MEQ in WATER FOR INJECTION 1 100ML.BAG IVPB ONE (12:00)
[2021-07-10] MEDS: NOREPINEPHRINE 8 MG in SODIUM CHLORIDE 0.9% 250 ML IV SCH (12:56)
[2021-07-10] MEDS ORDERED: VANCOMYCIN TROUGH DUE 1 EACH MISC MISCELLANE ONE (13:00)
[2021-07-10 13:07] LABS: Glucose,Whole Blood 111 mg/dL (75-99)
[2021-07-10] MEDS ORDERED: CISATRACURIUM 2 MG/ML 5 ML VIAL IV ONE (13:27)
[2021-07-10] MEDS: POTASSIUM BICARBONATE/CIT AC 20 MEQ TABLET.EFF NG-TUBE SCH ×4 (14:21→18:37)
--- NOTE | 2021-07-10 14:23 | PN ---
PROGRESS NOTE Mr. Carty has presented with hypoxic respiratory failure, had a troponin elevation. He is extubated himself, remains hemodynamically stable, does not communicate much. Vital signs stable. JVD is not evident. S1-S2 heard normally. Short systolic murmur noted. Lungs revealed decent air entry. Abdomen is soft. Lower extremities reveal diminished pulses. Central nervous system assessment was not possible. I am recommending that we switch him from IV to subcu heparin. Continue current medical regimen. I will continue to see him as needed from a cardiac standpoint. The patient's troponin elevation could be related to some hypoxia, but no aggressive intervention necessary. His LV systolic function is fairly well preserved. MMODL / IJN: [id number] /
[2021-07-10] MEDS: fentaNYL (PF). 1,000 MCG in SODIUM CHLORIDE 0.9% 80 ML IV SCH (15:08)
[2021-07-10 18:03] LABS: Glucose,Whole Blood 125 mg/dL (75-99)
--- NOTE | 2021-07-10 23:22 | P.PN ---
Subjective This is a pleasant 70 years old male with past medical history of BPH, dysphagia, Lewy Body dementia, . Patient was sent from [facility] for shortness of breath and possible aspiration pneumonia. Pt is non verbal. Patient could not provide information so it was obtained from chart and staff Upon Arrival patient was tachypneic, tachycardic, hypoxic with saturation of 84% on room air. Patient had to be intubated. Currently he is saturating 96% on mechanical ventilation as patient was intubated in the emergency room. Patient has leukocytosis of 16.5 and 12.9. Hemoglobin 14.6 and platelet normal. INR 0.9 and d-dimer 2.8. ABG pH 7.3 with normal, pCO2 39 normal and pO2 67 low BMP showing hypernatremia 151, high creatinine 1.8 and high lactic acid 2.5. This came down to sodium 141, normal creatinine 1.0 and lactic acid down to normal at 1.6. Liver enzymes trending up with AST was 56 and ALT 106. Troponin elevated at 0.08 and 0.22. ProBNP 269 Urine analysis showed 1+ protein, 26 RBCs and WBCs 17. covid and influenza viruses are not detected Chest x-ray showing minimal patchy airspace opacity bilateral versus atelectasis. CTA of the chest, no pulmonary embolism. There is abrupt cutoff of the left lower lobe bronchus with endotracheal dilatation and hypodensity which may represent mucous plugging. There is also endobronchial hypodensity of the left upper lobe perihilar region. Left lower lobe atelectasis. Patchy multilobar airspace opacity, predominantly of the left upper and left lower lobes. Enteric tube distal tip in the proximal duodenum. Heterogeneous nodular thyroid with recommendation for thyroid ultrasound CT of the brain: No acute process. In the emergency room patient was started on cefepime and IV vancomycin cardiology and pulmonary team were consulted 07/09/2021 Patient remains on intubated on mechanical ventilation with pulmonary/critical care team followed closely. P [place]. FiO2 of 30%. He is actually hypertensive and today he was initiated on cleviprex drip . A stable except for mild leukocytosis of 15.9 K. Chest x-ray clear however was pneumonia merely on the left side. He remains on heparin drip for non-STEMI He's sputum culture is growing Klebsiella He still on cefepime and IV vancomycin 07/10/2021 Self extubated himself this morning however he was obtunded and responsive. Later on he was still tachypneic with a breathing rate in 30s and he has to be intubated again. Chest x-ray showing worsening left sided pneumonia. He has low-grade fever of 99.8 and leukocytosis 13.8 K and his blood pressure dropped needing levophed today Heparin drip and switched to subcutaneous heparin by [employer] as well Superior sputum culture showing Klebsiella Patient remains on cefepime and IV vancomycin Objective - Vital Signs Vital signs: Vital Signs Temp 99.8 F H 07/10/21 12:00 Pulse 80 07/10/21 14:30 Resp 32 H 07/10/21 14:30 BP 107/62 07/10/21 12:00 Pulse Ox 100 07/10/21 14:30 Intake & Output 07/09/21 07/10/21 07/10/21 18:59 06:59 18:59 Intake Total 0188.712 5915.074 1453.951 Output Total 495 555 845 Balance 779.576 810.074 608.951 Weight 73.6 kg 76 kg Intake: IV 1075 1200 1150 Cefepime 2 gm In Sodium 175 100 Chloride 0.9% 100 ml @ 25 mls/hr IVPB Q8HR [facility] Rx# :[id number] D5.45 900 1200 800 Vancomycin 1,250 mg In 250 Sodium Chloride 0.9% 250 ml @ 125 mls/hr IVPB Q8H [facility] Rx#:[id number] Intake, IV Titration 189.576 115.074 243.951 Amount Clevidipine Butyrate 25 51.200 mg In Empty Bag 1 bag @ 1 MG/HR 2 mls/hr IV .Q24H [facility] Rx#:[id number] Dexmedetomidine/0.9% NaCl 36.126 63.874 1.349 (Pmx) 400 mcg In Empty Bag 1 bag @ 0.2 MCG/KG/HR 3.68 mls/hr IV .Q24H [facility] Rx#:[id number] Heparin Sod,Pork in 0.45% 34.717 149.272 NaCl 25,000 unit In 0.45 % NaCl 1 250ml.bag @ 12 UNITS/KG/HR 9.024 mls/hr IV .Q24H [facility] Rx#: [id number] fentaNYL (PF). 1,000 mcg 29.193 55.862 In Sodium Chloride 0.9% 80 ml @ 0.5 MCG/KG/HR 3. 604 mls/hr IV .Q24H [facility] Rx#:[id number] propofoL 1,000 mg In 89.540 37.468 Empty Bag 1 bag @ Titrate IV .Q0M [facility] Rx#: [id number] Tube Feeding 10 20 60 Other 30 Output: Urine 495 555 845 Other: Voiding Method Indwelling Catheter Indwelling Catheter Indwelling Catheter ABP, PAP, CO, CI - Last Documented Arterial Blood Pressure 123/49 - Exam -GENERAL: The patient is sedated and intubated HEENT: Pupils are round and equally reacting to light. EOMI. No scleral icterus. No conjunctival pallor. Normocephalic, atraumatic. No pharyngeal erythema. No thyromegaly. CARDIOVASCULAR: S1 and S2 present. No murmurs, rubs, or gallops. -PULMONARY: Chest is clear to auscultation, no wheezing or crackles. Bilateral crepitation ABDOMEN: Soft, nontender, nondistended, normoactive bowel sounds. No palpable organomegaly. MUSCULOSKELETAL: No joint swelling or deformity. EXTREMITIES: No cyanosis, clubbing, or pedal edema. NEUROLOGICAL: Gross neurological examination did not reveal any focal deficits. SKIN: No rashes. no petechiae. - Labs CBC & Chem 7: 07/10/21 05:15 07/10/21 21:35 Labs: Abnormal Lab Results - Last 24 Hours (Table) 07/10/21 07/10/21 07/10/21 Range/Units 00:05 05:15 05:15 WBC 13.8 H (3.8-10.6) k/uL Hgb 12.9 L (13.0-17.5) gm/dL Neutrophils # 11.8 H (1.3-7.7) k/uL APTT (22.0-30.0) sec ABG pH (7.35-7.45) ABG pCO2 (35-45) mmHg ABG pO2 (83-108) mmHg ABG O2 Saturation (94-97) % Potassium 3.0 L (3.5-5.1) mmol/L Chloride 116 H (98-107) mmol/L Carbon Dioxide 21 L (22-30) mmol/L Glucose 123 H (74-99) mg/dL POC Glucose (mg/dL) 130 H (75-99) mg/dL Calcium 7.8 L (8.4-10.2) mg/dL 07/10/21 07/10/21 07/10/21 Range/Units 05:15 05:23 06:03 WBC (3.8-10.6) k/uL Hgb (13.0-17.5) gm/dL Neutrophils # (1.3-7.7) k/uL APTT 38.2 H (22.0-30.0) sec ABG pH 7.46 H (7.35-7.45) ABG pCO2 33 L (35-45) mmHg ABG pO2 82 L (83-108) mmHg ABG O2 Saturation 97.8 H (94-97) % Potassium (3.5-5.1) mmol/L Chloride (98-107) mmol/L Carbon Dioxide (22-30) mmol/L Glucose (74-99) mg/dL POC Glucose (mg/dL) 115 H (75-99) mg/dL Calcium (8.4-10.2) mg/dL 07/10/21 07/10/21 07/10/21 Range/Units 11:07 13:00 13:03 WBC (3.8-10.6) k/uL Hgb (13.0-17.5) gm/dL Neutrophils # (1.3-7.7) k/uL APTT (22.0-30.0) sec ABG pH (7.35-7.45) ABG pCO2 33 L (35-45) mmHg ABG pO2 49 L* (83-108) mmHg ABG O2 Saturation 87.8 L (94-97) % Potassium 2.4 L* (3.5-5.1) mmol/L Chloride (98-107) mmol/L Carbon Dioxide (22-30) mmol/L Glucose (74-99) mg/dL POC Glucose (mg/dL) 111 H (75-99) mg/dL Calcium (8.4-10.2) mg/dL Microbiology - Last 24 Hours (Table) 07/07/21 17:57 Blood Culture - Preliminary Blood No Growth after 48 hours 07/07/21 17:57 Blood Culture - Preliminary Blood No Growth after 48 hours 07/07/21 18:04 Gram Stain - Final Sputum Sputum Culture - Final Klebsiella pneumoniae Assessment and Plan Assessment: Bilateral pneumonia mainly left-sided patchy pneumonia with mucous plugging and atelectasis. 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 Cardiology consult Labs and medication were reviewed.. Continue same treatment. Continue with symptomatic treatment. Resume home medication. Monitor lytes and vitals. DVT and GI prophylaxis. Further recommendations depends on the clinical course of the patient DVT prophylaxis: Heparin GI Prophylaxis: Ppi Prognosis is guarded
[2021-07-11 01:01] LABS: Glucose,Whole Blood 123 mg/dL (75-99)
[2021-07-11] MEDS: POTASSIUM CHLORIDE 20 MEQ in WATER FOR INJECTION 1 100ML.BAG IVPB SCH (02:01)
[2021-07-11] MEDS: CEFEPIME 2 GM in SODIUM CHLORIDE 0.9% 100 ML IVPB SCH ×4 (02:01→23:52)
[2021-07-11] MEDS ORDERED: VANCOMYCIN TROUGH DUE 1 EACH MISC MISCELLANE ONE (05:00)
[2021-07-11 05:46] LABS: Glucose,Whole Blood 125 mg/dL (75-99)
[2021-07-11 05:50] LABS: ABG Base Excess -1.4 mmol/L; ABG HCO3 23 mmol/L (21-25); ABG Oxygen Saturation 96.6 % (94-97); ABG PCO2 37 mmHg (35-45); ABG PH 7.41 (7.35-7.45); ABG PO2 76 mmHg (83-108); ABG TCO2 25 mmol/L (19-24); Allen Test Performed? Yes
[2021-07-11 05:53] LABS: HCT 36.7 % (39.0-53.0); HGB 12.1 gm/dL (13.0-17.5); MCH 30.3 pg (25.0-35.0); MCHC 32.9 g/dL (31.0-37.0); Platelet Count 201 k/uL (150-450); RBC 3.99 m/uL (4.30-5.90); RDW 13.3 % (11.5-15.5); WBC 13.4 k/uL (3.8-10.6)
[2021-07-11 06:09] LABS: African American GFR (CKD) >90 (>60 ml/min/1.73 sqM); Anion Gap 3 mmol/L; Blood Urea Nitrogen 13 mg/dL (9-20); Calcium 8.1 mg/dL (8.4-10.2); Carbon Dioxide 21 mmol/L (22-30); Chloride 115 mmol/L (98-107); Glucose 142 mg/dL (74-99); Non-African American GFR(CKD) >90 (>60 ml/min/1.73 sqM); Potassium 4.3 mmol/L (3.5-5.1); Sodium 139 mmol/L (137-145)
[2021-07-11 06:38] VITALS: BP 91/58
--- NOTE | 2021-07-11 07:31 | XR ---
EXAMINATION TYPE: XR chest 1V portable DATE OF EXAM: 07/11/2021 COMPARISON: 07/10/2021 HISTORY: 70 years Male. STUDY INDICATION GIVEN: Tube placement . TECHNIQUE: Portable chest radiograph IMPRESSION: Compared to the prior study there is increased volume of the left lower lobe with what may be conside red a deep sulcus sign concerning for left-sided pneumothorax. Repeat chest radiographs in the uprigh t and right lateral decubitus or a noncontrast CT chest. Tip of endotracheal tube about 3 cm above gilberto. Enteric tube courses into the stomach. The tip of the catheter projecting over the right internal jugular vein is noted to be at the level o f C1-2. Left greater than right bibasilar opacities are again demonstrated which may represent a combination of atelectasis and/or infiltrate. No large pleural effusion. Stable cardiomediastinal silhouette.
[2021-07-11] MEDS: DEXTROSE 5%-0.45% NACL 1,000 ML IV SCH ×3 (07:52→19:50)
[2021-07-11] MEDS: DEXMEDETOMIDINE/0.9% NACL(PMX) 400 MCG in EMPTY BAG 1 BAG IV SCH (07:53)
[2021-07-11] MEDS: PANTOPRAZOLE 40 MG/10 ML VIAL IVP SCH (08:25)
[2021-07-11] MEDS: METOPROLOL TARTRATE 50 MG TAB PO SCH ×2 (08:25→19:49)
[2021-07-11] MEDS: CHLORHEXIDINE GLUCONATE 15 ML CUP MUCOUS MEM SCH ×2 (08:25→19:49)
[2021-07-11] MEDS: HEPARIN SODIUM,PORCINE/PF 5,000 UNIT/0.5 ML SYRINGE SQ SCH ×2 (08:25→19:49)
[2021-07-11] MEDS: VANCOMYCIN 1,500 MG in SODIUM CHLORIDE 0.9% 250 ML IVPB SCH ×3 (08:25→23:53)
[2021-07-11] MEDS: CLEVIDIPINE BUTYRATE 25 MG in EMPTY BAG 1 BAG IV SCH (08:26)
[2021-07-11] MEDS: fentaNYL (PF). 1,000 MCG in SODIUM CHLORIDE 0.9% 80 ML IV SCH (12:15)
--- NOTE | 2021-07-11 13:43 | US ---
EXAMINATION TYPE: US venous doppler duplex UE RT DATE OF EXAM: 07/11/2021 COMPARISON: NONE CLINICAL HISTORY: Edema RUE. Right arm swelling on intubated ICU pt SIDE PERFORMED: Right Right Arm: Grayscale, color doppler, spectral doppler imaging performed of the deep veins of the uppe r extremities. There is normal flow, compressibility and vascular waveforms. IMPRESSION: Mild soft tissue swelling of the arm without sonographic evidence for acute vein thrombosis.
--- NOTE | 2021-07-11 14:45 | P.PN ---
Subjective Progress Note Date: 07/11/21 Principal diagnosis: Acute hypoxic respiratory failure secondary to aspiration pneumonia requiring intubation and mechanical ventilation. This is a 70-year-old white male with history of Lewy body dementia, history of being nonverbal. History of hypertension. and benign prostatic hypertrophy, history of Parkinson's disease. Patient was sent from [facility] with a concern of patient becoming more and more short of breath. And this has been noticed over the last 2 days. Nursing staff felt the patient may have aspirated. Patient is nonverbal. He was also noted to have significant urinary retention. Upon arrival to the ER, patient was unresponsive, and in severe respiratory distress. O2 saturation was 80% on nonrebreather mask, and not much history could be obtained from the patient. Patient had to be intubated by the ER physician shortly after he arrived to the ER, and it was felt that the patient may have extensive pneumonia involving the left lower lobe and left upper lobe, there is also a concern about the mucous plugging in the left lower lobe bronchus, however post intubation chest x-ray showed significant clearing of the airspace disease noted in the left lower lobe. In the meantime the patient was felt to be possibly septic, but no evidence of septic shock. Patient was given fluids, placed on mechanical ventilation, and admitted to the ICU. Placed on broad-spectrum antibiotics. And presently he is on tidal volume of 400 assist control rate of 30, FiO2 60% and PEEP of 5. Patient is requiring propofol, at 20 mcg/kg/m, he is also on fentanyl at 0.5 mcg/kg/h, patient is also on vancomycin and cefepime. Patient was seen by cardiology, and he was started also on heparin for his elevated troponin. ABG this morning showed a pO2 of 101 pCO2 of 36 pH of 7.41. WBC count is 12.9 hemoglobin 14.6. Basic metabolic profile is normal renal profile showed a BUN of 43 creatinine 1.03 PCR was negative for COVID-19 infection. The patient is seen today 07/09/2021 in follow-up in the intensive care unit. He remains intubated on mechanical ventilator in assist control mode at rate of 30, tidal volume 400, FiO2 35% and a PEEP of 5. Morning blood gases revealed a PaO2 of 67, pCO2 32, pH 7.46. Chest x-ray continues to show left lower lobe pneumonia. Some right lung involvement as well. Improved compared to yesterday. Remains sedated on propofol at 20 mcg/kg/m. Fentanyl drip at 0.5 mcg/kg/m. Heparin drip. Blood cultures reveal no growth. Urine culture reveals no growth. Sputum culture is revealing gram-negative bacilli. He is on antibiotics in the form of vancomycin and cefepime. He is somewhat hypertensive. White count 15.9. Hemoglobin 14.2. Sodium 146. Potassium 3.5. Bicarb 21. Creatinine 0.84. Reevaluated today on 07/10/2021, patient remains in the intensive care unit, patient was intubated yesterday, however early this morning the patient extubated himself, and he tolerated the extubation well. Presently he is off Precedex, off sedatives and narcotics, off mechanical ventilation, and chest x- ray early this morning when he was intubated showed minimal bibasilar infiltrates/atelectasis. Patient is on few liters nasal cannula, does not seem to be in any distress, a nasogastric tube was placed, and follow-up chest x-ray showed adequate placement of the nasogastric tube. ABG earlier today showed a pO2 of 82 pCO2 33 pH of 7.46. WBC count is 13.8 hemoglobin 12.9, patient is hypokalemic being corrected as per protocol. Renal profile is normal electrolytes are otherwise normal. Reevaluated today on 07/11/21, patient extubated himself yesterday, however within a couple of hours he had to be reintubated. Patient developed respiratory distress, and he was unable to protect his airways, unable to clear his secretions, hence decided to reintubate the patient. Presently the patient is on Tylenol volume of 400, rate of 30 FiO2 40% and PEEP of 5 and I cut it down to 8. ABG showed a pO2 of 76 pCO2 37 pH of 7.41. Patient is on fentanyl at 0.5 mcg/kg/h, norepinephrine 0.06 mcg/kg/m propofol at 65 mcg/kg/m. He is on D5 45 at 100 mL/h. Chest x-ray is showing mostly left lower lobe airspace disease consistent with pneumonia and right lower lobe atelectasis. I suspect that we are dealing with aspiration pneumonia. Labs from today showed leukocytosis with WBC count of 13.4 hemoglobin 12.1 lites are normal renal profile is normal. Patient is sedated, he is calm. I am recommending that the patient undergoes tracheostomy and PEG tube placement if the family continues to a is insiston full her a work measures. Otherwise may have to really consider comfort care measures on this patient. But the seems to be undecided at this point. Objective - Vital Signs Vital signs: Vital Signs Temp 97.8 F 07/11/21 12:00 Pulse 80 07/11/21 14:15 Resp 30 H 07/11/21 14:15 BP 91/58 07/11/21 05:45 Pulse Ox 99 07/11/21 14:15 Intake & Output 07/10/21 07/11/21 07/11/21 18:59 06:59 18:59 Intake Total 2163.610 3208.535 1149.880 Output Total 1025 755 390 Balance 101.989 7734.535 759.880 Weight 80 kg Intake: IV 1550 1550 750 Cefepime 2 gm In Sodium 100 100 Chloride 0.9% 100 ml @ 25 mls/hr IVPB Q8HR [facility] Rx# :[id number] D5.45 1200 1000 500 Potassium Chloride 20 meq 200 In Water For Injection 1 100ml.bag @ 50 mls/hr IVPB Q2H [facility] Rx#: [id number] Vancomycin 1,250 mg In 250 250 250 Sodium Chloride 0.9% 250 ml @ 125 mls/hr IVPB Q8H [facility] Rx#:[id number] Intake, IV Titration 343.951 279.535 399.880 Amount Dexmedetomidine/0.9% NaCl 1.349 (Pmx) 400 mcg In Empty Bag 1 bag @ 0.2 MCG/KG/HR 3.68 mls/hr IV .Q24H [facility] Rx#:[id number] Heparin Sod,Pork in 0.45% 149.272 NaCl 25,000 unit In 0.45 % NaCl 1 250ml.bag @ 12 UNITS/KG/HR 9.024 mls/hr IV .Q24H [facility] Rx#: [id number] Norepinephrine 8 mg In 79.535 130.007 Sodium Chloride 0.9% 250 ml @ 0.05 MCG/KG/MIN 7. 353 mls/hr IV .Q24H [facility] Rx#:[id number] fentaNYL (PF). 1,000 mcg 55.862 84.153 In Sodium Chloride 0.9% 80 ml @ 0.5 MCG/KG/HR 3. 604 mls/hr IV .Q24H [facility] Rx#:[id number] propofoL 1,000 mg In 137.468 200 185.72 Empty Bag 1 bag @ Titrate IV .Q0M [facility] Rx#: [id number] Tube Feeding 90 60 Other 30 Output: Urine 1025 755 390 Other: Voiding Method Indwelling Catheter Indwelling Catheter Indwelling Catheter ABP, PAP, CO, CI - Last Documented Arterial Blood Pressure 127/50 - Exam Physical Exam: Revealed a 70-year-old white male intubated, mechanically ventilated, sedated, does not follow any instructions. HEENT:[Neck is supple.] [No neck masses.] [No thyromegaly.] [No JVD.] Chest: Symmetrical chest expansion crackles at the bases.. Cardiac Exam: [Normal S1 and S2, no S3 gallop, no murmur.] Abdomen: [Soft, nontender, no megaly, no rebound, no guarding, normal bowel sylvia nds.] Extremities: [No clubbing, no edema, no cyanosis.] However the right upper extremity is noted to be quite swollen. Suspicious for DVT involving the axillary or subclavian vein. Hence a venous Doppler was ordered Neurological Exam: Unable to assess, fully sedated on propofol and fentanyl Psychiatric: Unable to assess, patient has blunt affect Skin: No rashes. - Labs CBC & Chem 7: 07/11/21 05:40 07/11/21 05:40 Labs: Abnormal Lab Results - Last 24 Hours (Table) 07/10/21 07/10/21 07/10/21 Range/Units 17:00 18:02 21:35 WBC (3.8-10.6) k/uL RBC (4.30-5.90) m/uL Hgb (13.0-17.5) gm/dL Hct (39.0-53.0) % ABG pO2 (83-108) mmHg ABG Total CO2 (19-24) mmol/L Potassium 3.2 L 3.1 L (3.5-5.1) mmol/L Chloride (98-107) mmol/L Carbon Dioxide (22-30) mmol/L Creatinine (0.66-1.25) mg/dL Glucose (74-99) mg/dL POC Glucose (mg/dL) 125 H (75-99) mg/dL Calcium (8.4-10.2) mg/dL 07/11/21 07/11/21 07/11/21 Range/Units 00:59 05:40 05:40 WBC 13.4 H (3.8-10.6) k/uL RBC 3.99 L (4.30-5.90) m/uL Hgb 12.1 L (13.0-17.5) gm/dL Hct 36.7 L (39.0-53.0) % ABG pO2 (83-108) mmHg ABG Total CO2 (19-24) mmol/L Potassium (3.5-5.1) mmol/L Chloride 115 H (98-107) mmol/L Carbon Dioxide 21 L (22-30) mmol/L Creatinine 0.59 L (0.66-1.25) mg/dL Glucose 142 H (74-99) mg/dL POC Glucose (mg/dL) 123 H (75-99) mg/dL Calcium 8.1 L (8.4-10.2) mg/dL 07/11/21 07/11/21 Range/Units 05:45 05:45 WBC (3.8-10.6) k/uL RBC (4.30-5.90) m/uL Hgb (13.0-17.5) gm/dL Hct (39.0-53.0) % ABG pO2 76 L (83-108) mmHg ABG Total CO2 25 H (19-24) mmol/L Potassium (3.5-5.1) mmol/L Chloride (98-107) mmol/L Carbon Dioxide (22-30) mmol/L Creatinine (0.66-1.25) mg/dL Glucose (74-99) mg/dL POC Glucose (mg/dL) 125 H (75-99) mg/dL Calcium (8.4-10.2) mg/dL Microbiology - Last 24 Hours (Table) 07/07/21 17:57 Blood Culture - Preliminary Blood No Growth after 72 hours 07/07/21 17:57 Blood Culture - Preliminary Blood No Growth after 72 hours Assessment and Plan Assessment: Impression: Acute hypoxic respiratory failure secondary to aspiration pneumonia Sepsis secondary to pneumonia is strongly suspected. History of fluid body dementia. Suspect underlying Parkinson's disease. Troponin leak. Patient is on heparin as per cardiology. Self extubation on 07/10/21. Reintubation same day 07/10/21. Right upper extremity swelling hence I'm ordering a venous Doppler on the right upper extremity, if positive for DVT, patient may have to be laced back on heparin. Recommendation: Continue ventilatory support. Continue antibiotics. Enteral feeding via nasogastric tube. Continue oxygen and titrate accordingly. Continue bronchodilators. Continue GI and DVT prophylaxis. May have to restart heparin if the patient truly has DVT in the right upper extremity. Patient is relatively high risk for reintubation, CODE STATUS remains full. Overall prognosis is extremely poor and guarded. Critical care time is more than 30 minutes We will continue to follow. Time with Patient: Greater than 30
[2021-07-11] MEDS: NOREPINEPHRINE 8 MG in SODIUM CHLORIDE 0.9% 250 ML IV SCH (14:50)
--- NOTE | 2021-07-11 20:06 | P.PN ---
Subjective This is a pleasant 70 years old male with past medical history of BPH, dysphagia, Lewy Body dementia, . Patient was sent from [facility] [address] for shortness of breath and possible aspiration pneumonia. Pt is non verbal. Patient could not provide information so it was obtained from chart and staff Upon Arrival patient was tachypneic, tachycardic, hypoxic with saturation of 84% on room air. Patient had to be intubated. Currently he is saturating 96% on mechanical ventilation as patient was intubated in the emergency room. Patient has leukocytosis of 16.5 and 12.9. Hemoglobin 14.6 and platelet normal. INR 0.9 and d-dimer 2.8. ABG pH 7.3 with normal, pCO2 39 normal and pO2 67 low BMP showing hypernatremia 151, high creatinine 1.8 and high lactic acid 2.5. This came down to sodium 141, normal creatinine 1.0 and lactic acid down to normal at 1.6. Liver enzymes trending up with AST was 56 and ALT 106. Troponin elevated at 0.08 and 0.22. ProBNP 269 Urine analysis showed 1+ protein, 26 RBCs and WBCs 17. covid and influenza viruses are not detected Chest x-ray showing minimal patchy airspace opacity bilateral versus atelectasis. CTA of the chest, no pulmonary embolism. There is abrupt cutoff of the left lower lobe bronchus with endotracheal dilatation and hypodensity which may represent mucous plugging. There is also endobronchial hypodensity of the left upper lobe perihilar region. Left lower lobe atelectasis. Patchy multilobar airspace opacity, predominantly of the left upper and left lower lobes. Enteric tube distal tip in the proximal duodenum. Heterogeneous nodular thyroid with recommendation for thyroid ultrasound CT of the brain: No acute process. In the emergency room patient was started on cefepime and IV vancomycin cardiology and pulmonary team were consulted 07/09/2021 Patient remains on intubated on mechanical ventilation with pulmonary/critical care team followed closely. P [place]. FiO2 of 30%. He is actually hypertensive and today he was initiated on cleviprex drip . A stable except for mild leukocytosis of 15.9 K. Chest x-ray clear however was pneumonia merely on the left side. He remains on heparin drip for non-STEMI He's sputum culture is growing Klebsiella He still on cefepime and IV vancomycin 07/10/2021 Self extubated himself this morning however he was obtunded and responsive. Later on he was still tachypneic with a breathing rate in 30s and he has to be intubated again. Chest x-ray showing worsening left sided pneumonia. He has low-grade fever of 99.8 and leukocytosis 13.8 K and his blood pressure dropped needing levophed today Heparin drip and switched to subcutaneous heparin by triage register nurse as well Superior sputum culture showing Klebsiella Patient remains on cefepime and IV vancomycin 07/11/2021 Patient remains intubated and in high PEEP of 12 and FiO2 of 40% and rate about 30-34. Patient does not make much progress in his clinical situation patient despite. Pulmonary/critical care team may consider PEG tube and tracheostomy family de cided to pursue with therapy. Family and to decide overall plan of care. Other than that he is afebrile, mild leukocytosis. He is on cefepime and IV vancomycin. Objective - Vital Signs Vital signs: Vital Signs Temp 97.8 F 07/11/21 12:00 Pulse 85 07/11/21 12:00 Resp 30 H 07/11/21 12:00 BP 91/58 07/11/21 05:45 Pulse Ox 98 07/11/21 12:00 Intake & Output 07/10/21 07/11/21 07/11/21 18:59 06:59 18:59 Intake Total 3440.904 0739.535 1011.824 Output Total 1025 755 390 Balance 979.739 0646.535 621.824 Weight 80 kg Intake: IV 1550 1550 750 Cefepime 2 gm In Sodium 100 100 Chloride 0.9% 100 ml @ 25 mls/hr IVPB Q8HR KATIE Rx# :[id number] D5.45 1200 1000 500 Potassium Chloride 20 meq 200 In Water For Injection 1 100ml.bag @ 50 mls/hr IVPB Q2H KATIE Rx#: [id number] Vancomycin 1,250 mg In 250 250 250 Sodium Chloride 0.9% 250 ml @ 125 mls/hr IVPB Q8H KATIE Rx#:[id number] Intake, IV Titration 343.951 279.535 261.824 Amount Dexmedetomidine/0.9% NaCl 1.349 (Pmx) 400 mcg In Empty Bag 1 bag @ 0.2 MCG/KG/HR 3.68 mls/hr IV .Q24H KATIE Rx#:[id number] Heparin Sod,Pork in 0.45% 149.272 NaCl 25,000 unit In 0.45 % NaCl 1 250ml.bag @ 12 UNITS/KG/HR 9.024 mls/hr IV .Q24H KATIE Rx#: [id number] Norepinephrine 8 mg In 79.535 Sodium Chloride 0.9% 250 ml @ 0.05 MCG/KG/MIN 7. 353 mls/hr IV .Q24H KATIE Rx#:[id number] fentaNYL (PF). 1,000 mcg 55.862 76.104 In Sodium Chloride 0.9% 80 ml @ 0.5 MCG/KG/HR 3. 604 mls/hr IV .Q24H KATIE Rx#:[id number] propofoL 1,000 mg In 137.468 200 185.72 Empty Bag 1 bag @ Titrate IV .Q0M KATIE Rx#: [id number] Tube Feeding 90 60 Other 30 Output: Urine 1025 755 390 Other: Voiding Method Indwelling Catheter Indwelling Catheter Indwelling Catheter ABP, PAP, CO, CI - Last Documented Arterial Blood Pressure 125/55 - Exam -GENERAL: The patient is sedated and intubated HEENT: Pupils are round and equally reacting to light. EOMI. No scleral icterus. No conjunctival pallor. Normocephalic, atraumatic. No pharyngeal erythema. No thyromegaly. CARDIOVASCULAR: S1 and S2 present. No murmurs, rubs, or gallops. -PULMONARY: Chest is clear to auscultation, no wheezing or crackles. Bilateral crepitation ABDOMEN: Soft, nontender, nondistended, normoactive bowel sounds. No palpable organomegaly. MUSCULOSKELETAL: No joint swelling or deformity. EXTREMITIES: No cyanosis, clubbing, or pedal edema. NEUROLOGICAL: Gross neurological examination did not reveal any focal deficits. SKIN: No rashes. no petechiae. - Labs CBC & Chem 7: 07/11/21 05:40 07/11/21 05:40 Labs: Abnormal Lab Results - Last 24 Hours (Table) 07/10/21 07/10/21 07/10/21 Range/Units 13:00 17:00 18:02 WBC (3.8-10.6) k/uL RBC (4.30-5.90) m/uL Hgb (13.0-17.5) gm/dL Hct (39.0-53.0) % ABG pO2 (83-108) mmHg ABG Total CO2 (19-24) mmol/L Potassium 2.4 L* 3.2 L (3.5-5.1) mmol/L Chloride (98-107) mmol/L Carbon Dioxide (22-30) mmol/L Creatinine (0.66-1.25) mg/dL Glucose (74-99) mg/dL POC Glucose (mg/dL) 125 H (75-99) mg/dL Calcium (8.4-10.2) mg/dL 07/10/21 07/11/21 07/11/21 Range/Units 21:35 00:59 05:40 WBC 13.4 H (3.8-10.6) k/uL RBC 3.99 L (4.30-5.90) m/uL Hgb 12.1 L (13.0-17.5) gm/dL Hct 36.7 L (39.0-53.0) % ABG pO2 (83-108) mmHg ABG Total CO2 (19-24) mmol/L Potassium 3.1 L (3.5-5.1) mmol/L Chloride (98-107) mmol/L Carbon Dioxide (22-30) mmol/L Creatinine (0.66-1.25) mg/dL Glucose (74-99) mg/dL POC Glucose (mg/dL) 123 H (75-99) mg/dL Calcium (8.4-10.2) mg/dL 07/11/21 07/11/21 07/11/21 Range/Units 05:40 05:45 05:45 WBC (3.8-10.6) k/uL RBC (4.30-5.90) m/uL Hgb (13.0-17.5) gm/dL Hct (39.0-53.0) % ABG pO2 76 L (83-108) mmHg ABG Total CO2 25 H (19-24) mmol/L Potassium (3.5-5.1) mmol/L Chloride 115 H (98-107) mmol/L Carbon Dioxide 21 L (22-30) mmol/L Creatinine 0.59 L (0.66-1.25) mg/dL Glucose 142 H (74-99) mg/dL POC Glucose (mg/dL) 125 H (75-99) mg/dL Calcium 8.1 L (8.4-10.2) mg/dL Microbiology - Last 24 Hours (Table) 07/07/21 17:57 Blood Culture - Preliminary Blood No Growth after 72 hours 07/07/21 17:57 Blood Culture - Preliminary Blood No Growth after 72 hours Assessment and Plan Assessment: Bilateral pneumonia mainly left-sided patchy pneumonia with mucous plugging and atelectasis. 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 Cardiology consult Labs and medication were reviewed.. Continue same treatment. Continue with symptomatic treatment. Resume home medication. Monitor lytes and vitals. DVT and GI prophylaxis. Further recommendations depends on the clinical course of the patient DVT prophylaxis: Heparin GI Prophylaxis: Ppi Prognosis is guarded
[2021-07-11 23:23] LABS: Glucose,Whole Blood 106 mg/dL (75-99)
[2021-07-12 04:20] LABS: Basophils # (A) 0.1 k/uL (0-0.2); Basophils % (A) 1 %; Eosinophils # (A) 0.3 k/uL (0-0.7); Eosinophils % (A) 3 %; HCT 39.2 % (39.0-53.0); HGB 12.9 gm/dL (13.0-17.5); Lymphocytes # (A) 1.3 k/uL (1.0-4.8); Lymphocytes % (A) 11 %; MCH 30.4 pg (25.0-35.0); Mean Platelet Volume 9.7; Monocytes # (A) 0.5 k/uL (0-1.0); Monocytes % (A) 4 %; Neutrophils # (A) 9.6 k/uL (1.3-7.7); Neutrophils % (A) 80 %; Platelet Count 218 k/uL (150-450); RBC 4.26 m/uL (4.30-5.90); RDW 13.4 % (11.5-15.5); WBC 11.9 k/uL (3.8-10.6)
[2021-07-12 04:42] LABS: ALT 40 U/L (4-49); AST 41 U/L (17-59); African American GFR (CKD) >90 (>60 ml/min/1.73 sqM); Albumin 1.4 g/dL (3.5-5.0); Alkaline Phosphatase 67 U/L (38-126); Anion Gap 1 mmol/L; Blood Urea Nitrogen 6 mg/dL (9-20); Carbon Dioxide 18 mmol/L (22-30); Chloride 123 mmol/L (98-107); Glucose 99 mg/dL (74-99); Non-African American GFR(CKD) >90 (>60 ml/min/1.73 sqM); Sodium 142 mmol/L (137-145); Total Bilirubin 0.2 mg/dL (0.2-1.3); Total Protein 3.2 g/dL (6.3-8.2)
[2021-07-12] MEDS: fentaNYL (PF). 1,000 MCG in SODIUM CHLORIDE 0.9% 80 ML IV SCH (04:47)
[2021-07-12] MEDS: DEXTROSE 5%-0.45% NACL 1,000 ML IV SCH (04:51)
[2021-07-12 04:53] LABS: Calcium 5.8 mg/dL (8.4-10.2); Potassium 2.6 mmol/L (3.5-5.1)
[2021-07-12 06:08] LABS: ABG Base Excess 0.4 mmol/L; ABG HCO3 24 mmol/L (21-25); ABG Oxygen Saturation 96.1 % (94-97); ABG PCO2 35 mmHg (35-45); ABG PH 7.45 (7.35-7.45); ABG PO2 69 mmHg (83-108); ABG TCO2 26 mmol/L (19-24); Allen Test Performed? Yes
[2021-07-12] MEDS: POTASSIUM CHLORIDE 20 MEQ in WATER FOR INJECTION 1 100ML.BAG IVPB SCH ×3 (06:10→10:15)
[2021-07-12] MEDS ORDERED: VANCOMYCIN TROUGH DUE 1 EACH MISC MISCELLANE ONE (07:00)
[2021-07-12 08:06] VITALS: TEMP 98.1
[2021-07-12] MEDS: CHLORHEXIDINE GLUCONATE 15 ML CUP MUCOUS MEM SCH (08:16)
[2021-07-12] MEDS: PANTOPRAZOLE 40 MG/10 ML VIAL IVP SCH (08:16)
[2021-07-12] MEDS: CEFEPIME 2 GM in SODIUM CHLORIDE 0.9% 100 ML IVPB SCH (08:16)
[2021-07-12] MEDS: HEPARIN SODIUM,PORCINE/PF 5,000 UNIT/0.5 ML SYRINGE SQ SCH (08:16)
--- NOTE | 2021-07-12 08:18 | XR ---
EXAMINATION TYPE: XR chest 1V portable DATE OF EXAM: 07/12/2021 CLINICAL HISTORY: Difficulty breathing progress study. TECHNIQUE: Single AP portable semiupright view of the chest is obtained. COMPARISON: Chest x-ray from one day earlier and older studies. FINDINGS: Stable endotracheal and orogastric tubes. Persistent bibasilar opacities. Persistent silhouetting left hemidiaphragm. Cardiac silhouette is sta ble and within normal limits. Osseous structures are intact. IMPRESSION: Persistent left greater than right bibasilar acute infiltrate and/or atelectasis with geovanna pected small left pleural effusion. No significant change from one day earlier.
[2021-07-12] MEDS: DEXMEDETOMIDINE/0.9% NACL(PMX) 400 MCG in EMPTY BAG 1 BAG IV SCH (08:33)
[2021-07-12] MEDS: CLEVIDIPINE BUTYRATE 25 MG in EMPTY BAG 1 BAG IV SCH (08:33)
[2021-07-12 09:21] LABS: African American GFR (CKD) >90 (>60 ml/min/1.73 sqM); Non-African American GFR(CKD) >90 (>60 ml/min/1.73 sqM)
[2021-07-12] MEDS ORDERED: GLYCOPYRROLATE 0.2 MG/ML 2 ML VIAL IVP PRN (09:26)
[2021-07-12] MEDS ORDERED: MORPHINE SULFATE 4 MG/ML SYRINGE IV PRN (09:26)
[2021-07-12] MEDS ORDERED: ONDANSETRON 4 MG/2 ML VIAL IVP PRN (09:26)
[2021-07-12] MEDS ORDERED: ATROPINE OPHTH SOLN 1% 5ML BTL SUBLINGUAL PRN (09:26)
[2021-07-12] MEDS ORDERED: MORPHINE SULFATE 2 MG/ML SYRINGE IV PRN (09:26)
[2021-07-12] MEDS ORDERED: MORPHINE SULFATE 4 MG/ML SYRINGE IVP ONE (09:26)
[2021-07-12] MEDS ORDERED: LORazepam 2 MG/ML INJ IV PRN (09:26)
[2021-07-12] MEDS ORDERED: MORPHINE SULFATE (100 MG/2 ML) 100 MG in SODIUM CHLORIDE 0.9% 100 ML IV SCH (09:30)
--- NOTE | 2021-07-12 09:46 | P.PN ---
Subjective Progress Note Date: 07/12/21 Principal diagnosis: Respiratory failure. Acute hypoxic respiratory failure secondary to aspiration pneumonia requiring intubation and mechanical ventilation. This is a 70-year-old white male with history of Lewy body dementia, history of being nonverbal. History of hypertension. and benign prostatic hypertrophy, history of Parkinson's disease. Patient was sent from [facility] with a concern of patient becoming more and more short of breath. And this has been noticed over the last 2 days. Nursing staff felt the patient may have aspirated. Patient is nonverbal. He was also noted to have significant urinary retention. Upon arrival to the ER, patient was unresponsive, and in severe respiratory distress. O2 saturation was 80% on nonrebreather mask, and not much history could be obtained from the patient. Patient had to be intubated by the ER physician shortly after he arrived to the ER, and it was felt that the patient may have extensive pneumonia involving the left lower lobe and left upper lobe, there is also a concern about the mucous plugging in the left lower lobe bronchus, however post intubation chest x-ray showed significant clearing of the airspace disease noted in the left lower lobe. In the meantime the patient was felt to be possibly septic, but no evidence of septic shock. Patient was given fluids, placed on mechanical ventilation, and admitted to the ICU. Placed on broad-spectrum antibiotics. And presently he is on tidal volume of 400 assist control rate of 30, FiO2 60% and PEEP of 5. Patient is requiring propofol, at 20 mcg/kg/m, he is also on fentanyl at 0.5 mcg/kg/h, patient is also on vancomycin and cefepime. Patient was seen by cardiology, and he was started also on heparin for his elevated troponin. ABG this morning showed a pO2 of 101 pCO2 of 36 pH of 7.41. WBC count is 12.9 hemoglobin 14.6. Basic metabolic profile is normal renal profile showed a BUN of 43 creatinine 1.03 PCR was negative for COVID-19 infection. The patient is seen today 07/09/2021 in follow-up in the intensive care unit. H e remains intubated on mechanical ventilator in assist control mode at rate of 30, tidal volume 400, FiO2 35% and a PEEP of 5. Morning blood gases revealed a PaO2 of 67, pCO2 32, pH 7.46. Chest x-ray continues to show left lower lobe pneumonia. Some right lung involvement as well. Improved compared to yesterday. Remains sedated on propofol at 20 mcg/kg/m. Fentanyl drip at 0.5 mcg/kg/m. Heparin drip. Blood cultures reveal no growth. Urine culture reveals no growth. Sputum culture is revealing gram-negative bacilli. He is on antibiotics in the form of vancomycin and cefepime. He is somewhat hypertensive. White count 15.9. Hemoglobin 14.2. Sodium 146. Potassium 3.5. Bicarb 21. Creatinine 0.84. Reevaluated today on 07/10/2021, patient remains in the intensive care unit, pat lonint was intubated yesterday, however early this morning the patient extubated himself, and he tolerated the extubation well. Presently he is off Precedex, off sedatives and narcotics, off mechanical ventilation, and chest x-ray early this morning when he was intubated showed minimal bibasilar infi ltrates/atelectasis. Patient is on few liters nasal cannula, does not seem to be in any distress, a nasogastric tube was placed, and follow-up chest x-ray showed adequate placement of the nasogastric tube. ABG earlier today showed a pO2 of 82 pCO2 33 pH of 7.46. WBC count is 13.8 hemoglobin 12.9, patient is hypokalemic being corrected as per protocol. Renal profile is normal electrolytes are otherwise normal. Reevaluated today on 07/11/21, patient extubated himself yesterday, however within a couple of hours he had to be reintubated. Patient developed respiratory distress, and he was unable to protect his airways, unable to clear his secretions, hence decided to reintubate the patient. Presently the patient is on Tylenol volume of 400, rate of 30 FiO2 40% and PEEP of 5 and I cut it down to 8. ABG showed a pO2 of 76 pCO2 37 pH of 7.41. Patient is on fentanyl at 0.5 mcg/kg/h, norepinephrine 0.06 mcg/kg/m propofol at 65 mcg/kg/m. He is on D5 45 at 100 mL/h. Chest x-ray is showing mostly left lower lobe airspace disease consistent with pneumonia and right lower lobe atelectasis. I suspect that we are dealing with aspiration pneumonia. Labs from today showed leukocytosis with WBC count of 13.4 hemoglobin 12.1 lites are normal renal profile is normal. Patient is sedated, he is calm. I am recommending that the patient undergoes tracheostomy and PEG tube placement if the family continues to a is insiston full her a work measures. Otherwise may have to really consider comfort care measures on this patient. But the seems to be undecided at this point. Progress note dated 07/12/2021. The patient was admitted to the hospital on July 07. He came in with r espiratory failure, aspiration pneumonia, and Lewy body dementia. The patient was intubated on the , and self extubated himself on the . He was reintubated on the same day. He remains on the mechanical ventilator. The ventilator settings include the volume assist control mode, rate 30, tidal volume 400, FiO2 40%, and PEEP of 5. Blood gases show a PaO2 of 68, pCO2 35, and a pH is 7.4. The patient remains on norepinephrine at 1.6 mcg/m, fentanyl at 1 mcg/kg/h, propofol at 65 mcg/kg/m, D5 with half-normal saline at 100 mL an hour, and vital 1.2 at 10 mL an hour, and is goal. White count is 11.9, hemoglobin 12.9, hematocrit 39.2, and platelet count was normal at 218,000. Sodium 142, potassium 2.6, chlorides 123, carbon dioxide 18, anion gap 1, BUN 6, and creatinine 0.44. Calcium 5.8. Chest x-ray shows persistent left greater than right and bibasilar infiltrates and/or atelectasis, with a small left-sided effusion. Objective - Vital Signs Vital signs: Vital Signs Temp 98.1 F 07/12/21 08:00 Pulse 80 07/12/21 09:15 Resp 31 H 07/12/21 09:15 BP 91/58 07/11/21 05:45 Pulse Ox 97 07/12/21 09:15 Intake & Output 07/11/21 07/12/21 07/12/21 18:59 06:59 18:59 Intake Total 2064.388 1735.901 320 Output Total 675 2215 375 Balance 1389.388 -479.099 -55 Weight 82 kg Intake: IV 1350 1300 200 D5.45 1100 1300 200 Vancomycin 1,250 mg In 250 Sodium Chloride 0.9% 250 ml @ 125 mls/hr IVPB Q8H KATIE Rx#:[id number] Intake, IV Titration 624.388 315.901 100 Amount Norepinephrine 8 mg In 154.515 23.950 Sodium Chloride 0.9% 250 ml @ 0.05 MCG/KG/MIN 7. 353 mls/hr IV .Q24H KATIE Rx#:[id number] fentaNYL (PF). 1,000 mcg 84.153 91.951 In Sodium Chloride 0.9% 80 ml @ 0.5 MCG/KG/HR 3. 604 mls/hr IV .Q24H KATIE Rx#:[id number] propofoL 1,000 mg In 385.72 200 100 Empty Bag 1 bag @ Titrate IV .Q0M KATIE Rx#: [id number] Tube Feeding 60 120 20 Other 30 Output: Gastric Drainage 5 Urine 675 2210 375 Other: Voiding Method Indwelling Catheter Indwelling Catheter Indwelling Catheter ABP, PAP, CO, CI - Last Documented Arterial Blood Pressure 130/47 - Exam No acute distress, sedated, with an orally placed endotracheal tube and NG tube. HEENT examination is grossly unremarkable. Neck supple. Full range of motion. No adenopathy thyromegaly or neck vein distention. Cardiovascular examination reveals regular rhythm rate. S1-S2 normal. No S3 or S4. No discernible murmur noted. Heart rate 80 bpm. Lungs reveal diffuse bilateral rhonchi and basilar crackles. No wheezes. Breath sounds equal bilaterally. Abdomen soft bowel sounds are heard. No masses or tenderness. Extremities are intact. No cyanosis clubbing or edema. Right upper extremity is quite edematous and swollen. Skin is without rash or lesion. Neurologic examination cannot be adequately assessed as the patient's currently sedated. - Labs CBC & Chem 7: 07/12/21 04:00 07/12/21 08:20 Labs: Abnormal Lab Results - Last 24 Hours (Table) 07/11/21 07/12/21 07/12/21 Range/Units 23:21 04:00 04:00 WBC 11.9 H (3.8-10.6) k/uL RBC 4.26 L (4.30-5.90) m/uL Hgb 12.9 L (13.0-17.5) gm/dL Neutrophils # 9.6 H (1.3-7.7) k/uL ABG pO2 (83-108) mmHg ABG Total CO2 (19-24) mmol/L Potassium 2.6 L* (3.5-5.1) mmol/L Chloride 123 H (98-107) mmol/L Carbon Dioxide 18 L (22-30) mmol/L BUN 6 L (9-20) mg/dL Creatinine 0.44 L (0.66-1.25) mg/dL POC Glucose (mg/dL) 106 H (75-99) mg/dL Calcium 5.8 L* (8.4-10.2) mg/dL Total Protein 3.2 L (6.3-8.2) g/dL Albumin 1.4 L (3.5-5.0) g/dL 07/12/21 07/12/21 Range/Units 06:04 08:20 WBC (3.8-10.6) k/uL RBC (4.30-5.90) m/uL Hgb (13.0-17.5) gm/dL Neutrophils # (1.3-7.7) k/uL ABG pO2 69 L (83-108) mmHg ABG Total CO2 26 H (19-24) mmol/L Potassium (3.5-5.1) mmol/L Chloride (98-107) mmol/L Carbon Dioxide (22-30) mmol/L BUN (9-20) mg/dL Creatinine 0.60 L (0.66-1.25) mg/dL POC Glucose (mg/dL) (75-99) mg/dL Calcium (8.4-10.2) mg/dL Total Protein (6.3-8.2) g/dL Albumin (3.5-5.0) g/dL Microbiology - Last 24 Hours (Table) 07/07/21 17:57 Blood Culture - Preliminary Blood No Growth after 96 hours 07/07/21 17:57 Blood Culture - Preliminary Blood No Growth after 96 hours Assessment and Plan Assessment: Acute hypoxemic respiratory failure secondary to aspiration pneumonia, status post initial intubation on 07/07/2021. Sepsis, secondary to pneumonia. History of Lewy body dementia. Status post self extubation on July 10, with reintubation on the same day. No evidence of right upper extremity DVT. Plan: Plan dated 07/12/2021. The nurse, the is considering possible withdrawal from life support and making the patient comfort measures only. That decision has not taken place as yet. In the meantime, we can back off some of the sedation including the fentanyl and propofol. Additional recommendations and suggestions are forthcoming. Labs and x-rays are both reviewed. We will continue to follow make recommendations where appropriate. No ventilator adjustments at this time. Time with Patient: Greater than 30
[2021-07-12] MEDS: VANCOMYCIN 1,500 MG in SODIUM CHLORIDE 0.9% 250 ML IVPB SCH (10:00)
[2021-07-12] MEDS: NOREPINEPHRINE 8 MG in SODIUM CHLORIDE 0.9% 250 ML IV SCH (10:06)
[2021-07-12 11:48] VITALS: BMI 26.6
--- NOTE | 2021-07-12 12:30 | P.PN ---
Subjective This is a pleasant 70 years old male with past medical history of BPH, dysphagia, Lewy Body dementia, . Patient was sent from [facility] for shortness of breath and possible aspiration pneumonia. Pt is non verbal. Patient could not provide information so it was obtained from chart and staff Upon Arrival patient was tachypneic, tachycardic, hypoxic with saturation of 84% on room air. Patient had to be intubated. Currently he is saturating 96% on mechanical ventilation as patient was intubated in the emergency room. Patient has leukocytosis of 16.5 and 12.9. Hemoglobin 14.6 and platelet normal. INR 0.9 and d-dimer 2.8. ABG pH 7.3 with normal, pCO2 39 normal and pO2 67 low BMP showing hypernatremia 151, high creatinine 1.8 and high lactic acid 2.5. This came down to sodium 141, normal creatinine 1.0 and lactic acid down to normal at 1.6. Liver enzymes trending up with AST was 56 and ALT 106. Troponin elevated at 0.08 and 0.22. ProBNP 269 Urine analysis showed 1+ protein, 26 RBCs and WBCs 17. covid and influenza viruses are not detected Chest x-ray showing minimal patchy airspace opacity bilateral versus atelectasis. CTA of the chest, no pulmonary embolism. There is abrupt cutoff of the left lower lobe bronchus with endotracheal dilatation and hypodensity which may represent mucous plugging. There is also endobronchial hypodensity of the left upper lobe perihilar region. Left lower lobe atelectasis. Patchy multilobar airspace opacity, predominantly of the left upper and left lower lobes. Enteric tube distal tip in the proximal duodenum. Heterogeneous nodular thyroid with recommendation for thyroid ultrasound CT of the brain: No acute process. In the emergency room patient was started on cefepime and IV vancomycin cardiology and pulmonary team were consulted 07/09/2021 Patient remains on intubated on mechanical ventilation with pulmonary/critical care team followed closely. P [place]. FiO2 of 30%. He is actually hypertensive and today he was initiated on cleviprex drip . A stable except for mild leukocytosis of 15.9 K. Chest x-ray clear however was pneumonia merely on the left side. He remains on heparin drip for non-STEMI He's sputum culture is growing Klebsiella He still on cefepime and IV vancomycin 07/10/2021 Self extubated himself this morning however he was obtunded and responsive. Later on he was still tachypneic with a breathing rate in 30s and he has to be intubated again. Chest x-ray showing worsening left sided pneumonia. He has low-grade fever of 99.8 and leukocytosis 13.8 K and his blood pressure dropped needing levophed today Heparin drip and switched to subcutaneous heparin by solar sales associate as well Superior sputum culture showing Klebsiella Patient remains on cefepime and IV vancomycin 07/11/2021 Patient remains intubated and in high PEEP of 12 and FiO2 of 40% and rate about 30-34. Patient does not make much progress in his clinical situation patient despite. Pulmonary/critical care team may consider PEG tube and tracheostomy family de cided to pursue with therapy. Family and to decide overall plan of care. Other than that he is afebrile, mild leukocytosis. He is on cefepime and IV vancomycin. 07/12/2021 Patient today he still intubated on mechanical ventilation, still in critical condition. Closely by pulmonary/critical care team. Blood pressure 146/49, heart rate 88. WBC 11.9 K. Potassium 2.6, creatinine 0.4 Family discussed the case with Dr. Payne for possible comfort care measures only. And later on when I talked to the bedside nurse she told me family decided to pursue comfort care measures today. Objective - Vital Signs Vital signs: Vital Signs Temp 98.1 F 07/12/21 08:00 Pulse 93 07/12/21 10:30 Resp 15 07/12/21 10:30 BP 91/58 07/11/21 05:45 Pulse Ox 95 07/12/21 10:30 Intake & Output 07/11/21 07/12/21 07/12/21 18:59 06:59 18:59 Intake Total 2064.388 1735.901 387.534 Output Total 675 2215 375 Balance 1389.388 -479.099 12.534 Weight 82 kg 82 kg Intake: IV 1350 1300 200 D5.45 1100 1300 200 Vancomycin 1,250 mg In 250 Sodium Chloride 0.9% 250 ml @ 125 mls/hr IVPB Q8H [facility] Rx#:[id number] Intake, IV Titration 624.388 315.901 167.534 Amount Morphine Sulfate (100 mg/ 9.061 2 ml) 100 mg In Sodium Chloride 0.9% 100 ml @ 1 MG/HR 1.02 mls/hr IV . Q24H [facility] Rx#:[id number] Norepinephrine 8 mg In 154.515 23.950 0.049 Sodium Chloride 0.9% 250 ml @ 0.05 MCG/KG/MIN 7. 353 mls/hr IV .Q24H [facility] Rx#:[id number] fentaNYL (PF). 1,000 mcg 84.153 91.951 37.842 In Sodium Chloride 0.9% 80 ml @ 0.5 MCG/KG/HR 3. 604 mls/hr IV .Q24H [facility] Rx#:[id number] propofoL 1,000 mg In 385.72 200 120.582 Empty Bag 1 bag @ Titrate IV .Q0M [facility] Rx#: [id number] Tube Feeding 60 120 20 Other 30 Output: Gastric Drainage 5 Urine 675 2210 375 Other: Voiding Method Indwelling Catheter Indwelling Catheter Indwelling Catheter ABP, PAP, CO, CI - Last Documented Arterial Blood Pressure 152/53 - Exam -GENERAL: The patient is sedated and intubated HEENT: Pupils are round and equally reacting to light. EOMI. No scleral icterus. No conjunctival pallor. Normocephalic, atraumatic. No pharyngeal erythema. No thyromegaly. CARDIOVASCULAR: S1 and S2 present. No murmurs, rubs, or gallops. -PULMONARY: Chest is clear to auscultation, no wheezing or crackles. Bilateral crepitation ABDOMEN: Soft, nontender, nondistended, normoactive bowel sounds. No palpable organomegaly. MUSCULOSKELETAL: No joint swelling or deformity. EXTREMITIES: No cyanosis, clubbing, or pedal edema. NEUROLOGICAL: Gross neurological examination did not reveal any focal deficits. SKIN: No rashes. no petechiae. - Labs CBC & Chem 7: 07/12/21 04:00 07/12/21 08:20 Labs: Abnormal Lab Results - Last 24 Hours (Table) 07/11/21 07/12/21 07/12/21 Range/Units 23: 04:00 04:00 WBC 11.9 H (3.8-10.6) k/uL RBC 4.26 L (4.30-5.90) m/uL Hgb 12.9 L (13.0-17.5) gm/dL Neutrophils # 9.6 H (1.3-7.7) k/uL ABG pO2 (83-108) mmHg ABG Total CO2 (19-24) mmol/L Potassium 2.6 L* (3.5-5.1) mmol/L Chloride 123 H (98-107) mmol/L Carbon Dioxide 18 L (22-30) mmol/L BUN 6 L (9-20) mg/dL Creatinine 0.44 L (0.66-1.25) mg/dL POC Glucose (mg/dL) 106 H (75-99) mg/dL Calcium 5.8 L* (8.4-10.2) mg/dL Total Protein 3.2 L (6.3-8.2) g/dL Albumin 1.4 L (3.5-5.0) g/dL 07/12/21 07/12/21 Range/Units 06:04 08:20 WBC (3.8-10.6) k/uL RBC (4.30-5.90) m/uL Hgb (13.0-17.5) gm/dL Neutrophils # (1.3-7.7) k/uL ABG pO2 69 L (83-108) mmHg ABG Total CO2 26 H (19-24) mmol/L Potassium (3.5-5.1) mmol/L Chloride (98-107) mmol/L Carbon Dioxide (22-30) mmol/L BUN (9-20) mg/dL Creatinine 0.60 L (0.66-1.25) mg/dL POC Glucose (mg/dL) (75-99) mg/dL Calcium (8.4-10.2) mg/dL Total Protein (6.3-8.2) g/dL Albumin (3.5-5.0) g/dL Microbiology - Last 24 Hours (Table) 07/07/21 17:57 Blood Culture - Preliminary Blood No Growth after 96 hours 07/07/21 17:57 Blood Culture - Preliminary Blood No Growth after 96 hours Assessment and Plan Assessment: Bilateral pneumonia mainly left-sided patchy pneumonia with mucous plugging and atelectasis. 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 Cardiology consult Labs and medication were reviewed.. Continue same treatment. Continue with symptomatic treatment. Resume home medication. Monitor lytes and vitals. DVT and GI prophylaxis. Further recommendations depends on the clinical course of the patient DVT prophylaxis: Heparin GI Prophylaxis: Ppi Prognosis is guarded Family decided to go with comfort care measures
[2021-07-12 13:23] VITALS: PULSE 98; RESP 24
--- NOTE | 2021-07-12 14:54 | P.DS ---
Providers Date of admission: 07/07/21 19:33 Attending physician: Elvie Kebede Consults: 07/07/21 19:33 Consult Physician Routine Consulting Provider: [facility] Consult Reason/Comments: elevated troponin, likely type 2 nstemi Do you want consulting provider notified?: Yes, Notify in am Consult Physician Stat Consulting Provider: Page Vela Reason/Comments: hypoxic respiratory failure, intubated Do you want consulting provider notified?: Already Contacted Primary care physician: Stuart [facility] Course: (( Please refer to the progress notes from today)) Patient Condition at Discharge: Critical Plan - Discharge Summary New Discharge Prescriptions: No Action bisacodyL [Dulcolax] 10 mg RECTAL DAILY PRN PRN Reason: Constipation Melatonin 5 mg PO HS Tamsulosin HCl [Flomax] 0.4 mg PO DAILY clonazePAM [KlonoPIN] 1 mg PO HS amLODIPine [Norvasc] 2.5 mg PO DAILY Magnesium Hydroxide [Milk of Magnesia] 2,400 mg PO DAILY PRN PRN Reason: Constipation Metoprolol Tartrate [Lopressor] 25 mg PO BID Losartan [Cozaar] 25 mg PO DAILY Atorvastatin [Lipitor] 20 mg PO HS Discharge Medication List Atorvastatin [Lipitor] 20 mg PO HS 07/07/21 [History] Losartan [Cozaar] 25 mg PO DAILY 07/07/21 [History] Magnesium Hydroxide [Milk of Magnesia] 2,400 mg PO DAILY PRN 07/07/21 [History] Melatonin 5 mg PO HS 07/07/21 [History] Metoprolol Tartrate [Lopressor] 25 mg PO BID 07/07/21 [History] Tamsulosin HCl [Flomax] 0.4 mg PO DAILY 07/07/21 [History] amLODIPine [Norvasc] 2.5 mg PO DAILY 07/07/21 [History] bisacodyL [Dulcolax] 10 mg RECTAL DAILY PRN 07/07/21 [History] clonazePAM [KlonoPIN] 1 mg PO HS 07/07/21 [History] Follow up Appointment(s)/Referral(s): Stuart Rose MD [Primary Care Provider] - 1 Week Discharge Disposition: [facility]CH TO [facility]
== END 2021-07-12 13:47 | disposition hospice, inpatient (51) | DRG 208 ==
LOC: EC 17:00 → 2SICU 19:33
PROVIDERS: ADMIT Hospitalist; ATTEND Hospitalist
PROC: 5A1945Z Respiratory Ventilation, 24-96 Consecutive Hours (ICD-10-PCS; principal; 2021-07-07)
PROC: 0BH17EZ Insertion of Endotracheal Airway into Trachea, Via Natural or Artificial Opening (ICD-10-PCS; principal; 2021-07-07)
PROC: 4A133B1 Monitoring of Arterial Pressure, Peripheral, Percutaneous Approach (ICD-10-PCS; 2021-07-08)
PROC: 4A133J1 Monitoring of Arterial Pulse, Peripheral, Percutaneous Approach (ICD-10-PCS; 2021-07-08)
PROC: 06HM33Z Insertion of Infusion Device into Right Femoral Vein, Percutaneous Approach (ICD-10-PCS; 2021-07-08)
DX: J69.0 Pneumonitis due to inhalation of food and vomit (principal); J96.01 Acute respiratory failure with hypoxia; I21.A1 Myocardial infarction type 2; N17.9 Acute kidney failure, unspecified; N39.0 Urinary tract infection, site not specified; E87.0 Hyperosmolality and hypernatremia; J98.11 Atelectasis; Z51.5 Encounter for palliative care; Z93.1 Gastrostomy status; T17.990A Other foreign object in respiratory tract, part unspecified in causing asphyxiation, initial encounter; N40.0 Benign prostatic hyperplasia without lower urinary tract symptoms; G31.83 Neurocognitive disorder with Lewy bodies; I10 Essential (primary) hypertension; E04.2 Nontoxic multinodular goiter; E87.8 Other disorders of electrolyte and fluid balance, not elsewhere classified; F02.80 Dementia in other diseases classified elsewhere, unspecified severity, without behavioral disturbance, psychotic disturbance, mood disturbance, and anxiety; Z20.822 Contact with and (suspected) exposure to COVID-19; I25.2 Old myocardial infarction; Z79.899 Other long term (current) drug therapy
CPT/HCPCS: 31500; 36415; 36600; 70450; 71045; 71275; 80048; 80053; 80202; 81001; 82565; 82805; 83605; 83735; 83880; 84132; 84484; 85025; 85027; 85379; 85610; 85730; 87040; 87070; 87077; 87086; 87186; 87205; 87636; 93005; 93306; 94002; 94003; 96365; 99285

== ENCOUNTER 2021-07-12 13:16 | Inpatient (IN) | payer MEDICAID ==
[2021-07-12] MEDS ORDERED: ATROPINE OPHTH SOLN 1% 5ML BTL SUBLINGUAL PRN (13:19)
[2021-07-12] MEDS ORDERED: MORPHINE SULFATE 2 MG/ML SYRINGE IV PRN (13:19)
[2021-07-12] MEDS ORDERED: ACETAMINOPHEN SUPPOSITORY 650 MG SUPP RECTAL PRN (13:19)
[2021-07-12] MEDS ORDERED: HALOPERIDOL LACTATE 5 MG/ML 1 ML VIAL IM PRN (13:19)
[2021-07-12] MEDS ORDERED: GLYCOPYRROLATE 0.2 MG/ML 2 ML VIAL IVP PRN (13:19)
[2021-07-12] MEDS ORDERED: LORazepam 2 MG/ML INJ IV PRN (13:19)
[2021-07-12] MEDS ORDERED: ONDANSETRON 4 MG/2 ML VIAL IVP PRN (13:19)
[2021-07-12] MEDS ORDERED: HYOSCYAMINE ORAL DROPS 1.875 MG/15 ML BOTTLE PO PRN (13:21)
[2021-07-12] MEDS ORDERED: SCOPOLAMINE 1.5MG/72HR PATCH TRANSDERM SCH (13:30)
[2021-07-12] MEDS ORDERED: MORPHINE SULFATE (100 MG/2 ML) 100 MG in SODIUM CHLORIDE 0.9% 100 ML IV SCH (13:30)
--- NOTE | 2021-07-12 14:58 | P.HPIM ---
History of Present Illness Please consider this combined H&P and discharge summary Diagnoses: End of life care, comfort care Bilateral pneumonia mainly left-sided patchy pneumonia with mucous plugging and atelectasis. Sputum culture is growing Klebsiella acute hypoxic respiratory failure, requiring mechanical ventilation Septic shock Elevated troponins, possible none STEMI multinodular goiter history of dysphagia, status post PEG tube placement History of benign prostatic hypertrophic History of lewy body dementia Hospital course: This is a pleasant 70 years old male with past medical history of BPH, dysphagia, Lewy Body dementia, . Patient was sent from [facility] for shortness of breath and possible aspiration pneumonia. Pt is non verbal. Patient could not provide information so it was obtained from chart and staff. Patient was found to have bilateral severe pneumonia secondary to Klebsiella associated with left-sided patchy pneumonia with mucous plugging and atelectasis. Patient also was in respiratory failure needing intubation even after he self extubated himself 2-3 days ago. Also patient developing septic shock needing pressors. Troponin elevated concerning for non-STEMI and he was treated for 48 hours of heparin drip her speech communication instructor Patient was fully closely by several consultants including pulmonary and cardiology Patient failed to improve despite several treatments including IV cefepime, IV vancomycin, pressors and other medication Family decided to make him comfort care today, eventually this afternoon. Please refer to nursing note for more details Past Medical History Past Medical History: Unable to Obtain Additional Past Medical History / Comment(s): BPH, dysphagia, Lewy Body dementia, non-verbal Last Myocardial Infarction Date:: 2006 History of Any Multi-Drug Resistant Organisms: Unobtainable Past Surgical History: Unable to Obtain Past Anesthesia/Blood Transfusion Reactions: No Reported Reaction Past Psychological History: Unable to Obtain Smoking Status: Unknown if ever smoked Past Alcohol Use History: Unable to Obtain Past Drug Use History: Unable to Obtain Medications and Allergies Home Medications Medication Instructions Recorded Confirmed Type Atorvastatin [Lipitor] 20 mg PO HS 07/07/21 07/07/21 History Losartan [Cozaar] 25 mg PO DAILY 07/07/21 07/07/21 History Magnesium Hydroxide [Milk of 2,400 mg PO DAILY PRN 07/07/21 07/07/21 History Magnesia] Melatonin 5 mg PO HS 07/07/21 07/07/21 History Metoprolol Tartrate [Lopressor] 25 mg PO BID 07/07/21 07/07/21 History Tamsulosin HCl [Flomax] 0.4 mg PO DAILY 07/07/21 07/07/21 History amLODIPine [Norvasc] 2.5 mg PO DAILY 07/07/21 07/07/21 History bisacodyL [Dulcolax] 10 mg RECTAL DAILY PRN 07/07/21 07/07/21 History clonazePAM [KlonoPIN] 1 mg PO HS 07/07/21 07/07/21 History Allergies Allergy/AdvReac Type Severity Reaction Status Date / Time cortisone Allergy Unknown Verified 07/07/21 17:45 lisinopril Allergy Unknown Verified 07/07/21 17:45 Sulfa (Sulfonamide Allergy Unknown Verified 07/07/21 17:45 Antibiotics) Physical Exam Vitals: Intake and Output 07/11/21 07/12/21 07/12/21 22:59 06:59 14:59 Other: Weight 82 kg
== END 2021-07-12 16:53 | disposition expired | DRG 951 ==
LOC: 2SICU 14:00
PROVIDERS: ADMIT Hospitalist; ATTEND Hospitalist
DX: Z51.5 Encounter for palliative care (principal); A41.9 Sepsis, unspecified organism; J15.0 Pneumonia due to Klebsiella pneumoniae; J96.01 Acute respiratory failure with hypoxia; R65.21 Severe sepsis with septic shock; I21.4 Non-ST elevation (NSTEMI) myocardial infarction; J98.11 Atelectasis; T17.890A Other foreign object in other parts of respiratory tract causing asphyxiation, initial encounter; N40.0 Benign prostatic hyperplasia without lower urinary tract symptoms; E04.2 Nontoxic multinodular goiter; F02.80 Dementia in other diseases classified elsewhere, unspecified severity, without behavioral disturbance, psychotic disturbance, mood disturbance, and anxiety; G31.83 Neurocognitive disorder with Lewy bodies; I25.2 Old myocardial infarction; Z79.899 Other long term (current) drug therapy; Z93.1 Gastrostomy status; Z88.8 Allergy status to other drugs, medicaments and biological substances; Z88.2 Allergy status to sulfonamides